=== PATIENT | male | born 1935 | race Caucasian/White ===

== ENCOUNTER → 2018-09-02 | Outpatient (CLI) | payer OTHER ==
[~2018-09-02] MED LIST: AMLODIPINE BESY10 MG; AVAPRO 150 MG150 MG PO; CLEOCIN HCL150 MG PO; NORVASC10 MG PO; PANTOPRAZOLE SO40 M1 PO; VYTORIN 10-201 EACH PO
--- NOTE | ~2018-09-02 | 2DMMODE ---
[facility] [address] [place] [address] 2 D/M-MODE ECHOCARDIOGRAM Name: MICHELLE WAY [facility] Room #: REG [facility]#: [id number] Admission: 09/02/18 Attend Phys: Josesito Jenkins Discharge: Date of : 35 Date of Service: 09/02/18 1408 Report #: [id number] THIS REPORT FOR: //name// APPROVED REPORT Study performed: 09/02/2018 13:07:34 EXAM: Comprehensive 2D, Doppler, and color-flow Echocardiogram Patient Location: Out-Patient Room #: Echo lab 2 Status: routine BSA: 2.22 HR: 64 bpm BP: 144/86 mmHg Rhythm: Pacemaker Other Information Study Quality: Adequate Indications Pacemaker Hypertension/HDD 2D Dimensions RVDd: 41.07 mm IVSd: 11.06 (7-11mm) LVOT Diam: 22.32 (18-24mm) LVDd: 51.63 mm PWd: 10.62 (7-11mm) Ascending Ao: 36.80 (22-36mm) LVDs: 34.96 (25-40mm) Aortic Root: 32.49 mm IVC: 24.00 mm Volumes Left Atrial Volume (Systole) Single Plane 4CH: 75.56 mL Single Plane 2CH: 59.84 mL LA ESV Index: 32.00 mL/m2 Aortic Valve AoV Peak Herber.: 1.88 m/s AO Peak Gr.: 14.20 mmHg LVOT Max P.25 mmHg LVOT Max V: 1.03 m/s ANA Vmax: 2.14 cm2 Mitral Valve E/A Ratio: 0.6 MV Decel. Time: 376.90 ms [facility] [address] [place] [address] 2 D/M-MODE ECHOCARDIOGRAM Name: MICHELLE WAY [facility] Room #: [facility]#: [id number] Admission: 09/02/18 Attend Phys: Josesito Jenkins Discharge: Date of : 35 Date of Service: 09/02/18 1408 Report #: [id number] E Max Herber.: 0.56 m/s MV A Herber.: 0.99 m/s MV PHT: 109.30 ms IVRT: 184.54 ms Pulmonary Valve PV Peak Herber.: 1.23 m/s PV Peak Gr.: 6.05 mmHg Pulmonary Vein P Vein S: 0.56 m/s P Vein A: 0.30 m/s P Vein D: 0.36 m/s P Vein A Dur.: 138.4 msec P Vein S/D Ratio: 1.56 Tricuspid Valve TR Peak Herber.: 2.65 m/s TR Peak Gr.: 28.18 mmHg PA Pressure: 38.00 mmHg Left Ventricle The left ventricle is normal size. There is normal left ventricular wall thickness. The left ventricular systolic function is normal. The left ventricular ejection fraction is within the normal range. LVEF is 50-55%. Grade I - abnormal relaxation pattern. Right Ventricle The right ventricle is normal size. The right ventricular systolic function is normal. Pacemaker lead is present in the right ventricle. Atria Left atrium is at the upper limits of normal. Right atrium is mildly dilated. Pacemaker lead is present in the right atrium. Aortic Valve The aortic valve is normal in structure. Aortic valve is calcified. Mild aortic regurgitation. There is no aortic valvular stenosis. Mitral Valve The mitral valve is normal in structure. Trace mitral regurgitation. No evidence of mitral valve stenosis. Tricuspid Valve The tricuspid valve is normal in structure. There is trace tricuspid regurgitation. Estimated PAP 38 mmHg. There is mild pulmonary hypertension. [facility] [address] [place] [address] 2 D/M-MODE ECHOCARDIOGRAM Name: MICHELLE WAY Room #: REG CL Jovanna#: [id number] Admission: 09/02/18 Attend Phys: Josesito Bowerschonninga Discharge: Date of : 35 Date of Service: 09/02/18 1408 Report #: [id number] Pulmonic Valve The pulmonary valve is normal in structure. Trace pulmonic regurgitation. Great Vessels The aortic root is normal in size. IVC is dilated and collapses >50% with inspiration. Pericardium There is no pericardial effusion. <Conclusion> The left ventricle is normal size. There is normal left ventricular wall thickness. The left ventricular systolic function is normal. Grade I - abnormal relaxation pattern. The right ventricle is normal size. Pacemaker lead is present in the right ventricle. Left atrium is at the upper limits of normal. Right atrium is mildly dilated. Pacemaker lead is present in the right atrium. Mild aortic regurgitation. Trace mitral regurgitation. There is trace tricuspid regurgitation. Estimated PAP 38 mmHg. <ELECTRONICALLY SIGNED> By: Say Braga MD 09/02/18 1408 140 Say Braga MD /INF
== END ==
LOC: CV 08:47
DX: I35.1 Nonrheumatic aortic (valve) insufficiency (principal); I35.8 Other nonrheumatic aortic valve disorders; I10 Essential (primary) hypertension; I48.0 Paroxysmal atrial fibrillation; I27.20 Pulmonary hypertension, unspecified; Z95.0 Presence of cardiac pacemaker

== ENCOUNTER → 2018-12-23 | Outpatient (CLI) | payer OTHER | LOC: NUC 08:25 | DX: R06.00 Dyspnea, unspecified (principal); R20.0 Anesthesia of skin; Z87.891 Personal history of nicotine dependence ==

== ENCOUNTER 2019-01-04 07:50 | Inpatient (IN) | payer OTHER ==
[2019-01-04] VITALS (10 sets, daily range): BP systolic 95–134; BP diastolic 52–75
[~2019-01-04] VITALS: Ht 188 cm; Wt 97.7 kg
[2019-01-04] MEDS ORDERED: PRADAXA150 MG PO (08:21)
[2019-01-04 08:23] LABS: HEMATOCRIT 43.8 % (42.0-52.0); MCH 29.5 pg (26.0-34.0); MCHC 34.2 g/dL (28.0-37.0); MCV 86.3 fL (80.0-100.0); RBC 5.08 mil/uL (4.50-6.00); RDW 13.5 % (10.5-14.5); WBC 6.2 thou/uL (4.0-11.0)
[2019-01-04 08:39] LABS: CALCIUM 10.2 mg/dL (8.5-10.1); CREATININE 1.5 mg/dL (0.7-1.3); POTASSIUM 3.7 mmol/L (3.5-5.1)
--- NOTE | 2019-01-04 09:11 | EKG ---
[address] [address] ELECTROCARDIOGRAM REPORT Name: MICHELLE WAY [facility] [id number] ������������������ Admission: 01/04/19 ������������������ Attend Phys: Say Braga MD Discharge: ������������������ Date of : 35 Report #: [id number] ����������������������������������������������������������������� [id number] THIS REPORT FOR: //name// [facility] Test Date: 2019-01-04 Test Time: 08:29:20 Pat Name: MICHELLE WAY Department: Room: Gender: Speaker Mounter: Graciela BUTLER : 1935 Requested By: Say Braga Order Number: [id number] MD: Josesito Jenkins Measurements Intervals [place] Rate: 60 P: 13 OR: 196 QRS: -85 QRSD: 192 T: 88 QT: 489 QTc: 489 Interpretive Statements Atrial-ventricular dual-paced rhythm No further analysis attempted due to paced rhythm Compared to ECG 04/20/2016 07:29:06 No significant changes Electronically Signed On 01-04-2019 9:10:54 CDT by Josesito Jenkins [email or web address] ��������������������������������������������� <ELECTRONICALLY SIGNED> ���������������������������������������� By: Josesito Jenkins MD ��������������������������������������������� [id number] [phone] Josesito Jenkins MD /GABBY
--- NOTE | 2019-01-04 10:52 | CATHLAB ---
[facility] [place] [address] INVASIVE PROCEDURE REPORT Name: MICHELLE WAY [facility] Room #: REG HoJaspreet#: [id number] ������������� Admission: 01/04/19 ������������� Attend Phys: Say Braga MD Discharge: ��� ������������� ��� Date of : 35 Date of Service: 01/04/19 1052 �� Report #: [id number] �������� ��������������������������������������������[id number] THIS REPORT FOR: //name// APPROVED REPORT Study performed: 01/04/2019 09:24:04 Patient Details Patient Status: Out-Patient Room #: The patient is a 83 year-old male Event Personnel Say Braga Hearing Dog Trainer, Silvia Sin RTR, CERTIFIED COURT/MEDICAL INTERPRETER Monitor, Lorin Gee RN, Holly Flores Kline, Tiffany RN slinger sequins Performed Art Access - R femoral artery* Coronary Angiography Only [id number] CORANG 59873 Initial Mod Sed Same Phys/QHP Gr5y 703189 92650 Mod Sed Same Phys/QHP Ea 206603 Hemostasis with Manual pressure Indication Dyspnea, Atypical chest pain , Positive stress test Risk Factors Hypercholesterolemia, Hypertension Procedure Narrative The Right Groin^ was infiltrated with 1% Lidocaine subcutaneous anesthesia. A PINNACLE 5FR Sheath #[id number] sheath was inserted into the RFA^. Coronary angiography was performed using coronary diagnostic catheters. The right coronary system was accessed and visualized with a JR4 catheter. The left coronary system was accessed and visualized with a JL5 catheter. Hemostasis was obtained with manual pressure following sheath removal without any complications. The patient tolerated the procedure well and there were no complications associated with the procedure. There was no hematoma. Intraoperative Conscious Sedation Sedation start time: 09:37 Case end Time: 10:19 Fentanyl 25 mcg Versed 0.[address] [address] INVASIVE PROCEDURE REPORT Name: MICHELLE WAY Room #: REG [facility]#: [id number] ������������� Admission: 01/04/19 ������������� Attend Phys: Say Braga MD Discharge: ��� ������������� ��� Date of : 35 Date of Service: 01/04/19 1052 �� Report #: [id number] �������� ��������������������������������������������[id number] Fluoro Time: 4.57 minutes Dose: DAP 5140.70 cGycm2 563 mGy Contrast Type and Amount: Visipaque 65 ml Coronary Angiography The patient's coronary anatomy is right dominant. Diagnostic Cath Left Main This is a short segment, with no flow-limiting lesions. LAD Just after giving off the first diagonal artery and first septal honest john rocket crew member, there is a severe occlusion, 95% in the mid segment. After the stenosis, the remaining segment of the LAD is free of any significant obstruction. Diagonal 1 There is a severe proximal occlusion. It divides into 2 branches, the inferior branch has a severe proximal stenosis. Circumflex This is a moderate size caliber vessel, has mild disease in the proximal segment. After giving off the first OM, there is a severe occlusion in the mid segment. The distal OM marginal is a small caliber vessel. OM1 This is a moderate size caliber vessel, patent with no flow-limiting lesions. OM2 This is a small-caliber vessel. Right Coronary There is a severe occlusion in the proximal segment, 70%. R PDA This has an early takeoff from the mid RCA segment. RPLV There is a severe occlusion in the proximal segment, 70%. Left Ventriculography Left Ventriculography was not performed. Ejection Fraction was >55% based off patient's Nuclear Cardiac Stress Test. Hemodynamics The aortic pressure is 101/59 mmHg with a mean of 76 mmHg. Conclusion 1. Severe multivessel coronary artery disease. 2. Recommend CV surgical consultation. 3. Aggressive risk factor management. ��������������������������������������������� <ELECTRONICALLY SIGNED> ���������������������������������������� By: Say Braga MD ��������������������������������������������� 01/04/19 1052 105 105 Say Braga MD /INF
[2019-01-04 11:00] LABS: HEMATOCRIT 41.5 % (42.0-52.0); PLATELET COUNT 201 thou/uL (150-400)
[2019-01-04 11:02] LABS: ABSOLUTE NEUTROPHILS 4.5 thou/uL (1.4-8.2); BASOPHILS 0.4 % (0.0-2.0); EOSINOPHILS 1.2 % (0.0-3.0); HEMOGLOBIN 14.2 gm/dL (14.0-18.0); LYMPHOCYTES 15.8 % (24.0-44.0); MCH 29.7 pg (26.0-34.0); MCHC 34.2 g/dL (28.0-37.0); POLYS 72.6 % (36.0-66.0); RBC 4.77 mil/uL (4.50-6.00); RDW 13.5 % (10.5-14.5); WBC 6.1 thou/uL (4.0-11.0)
[2019-01-04 11:10] LABS: APTT 27.3 Seconds (24.5-32.8); INR 1.1; PROTIME 11.2 Seconds (9.3-11.4)
[2019-01-04 11:16] LABS: CALCIUM 9.4 mg/dL (8.5-10.1); CREATININE 1.4 mg/dL (0.7-1.3); POTASSIUM 3.7 mmol/L (3.5-5.1)
[2019-01-04 11:22] LABS: ALBUMIN 3.9 g/dL (3.4-5.0); TOTAL BILIRUBIN 0.9 mg/dL (<0.1-1.0); TOTAL PROTEIN 6.7 g/dL (6.4-8.2)
--- NOTE | 2019-01-04 19:47 | NUR ---
ASSJESSNH CARE AT 1430, SHIFT ASSESSMENT AND ADMISSION DONE, VSS. POST CARDIAC CATH, RIGHT GROIN SITE, HEMOSTASIS WAS OBTAINED AT 1020, CAME TO THE FLOOR AFTER COMPLETING BED REST. SITE LOOKS C/D/I, SOFT TO TOUCH, NO BRUIT, NO REDNESS OR HEMATOMA NOTED, SEE INTERVETION FOR VS AND DOCUMENTATION. VS PERFORMED Q1*5 HOURS, VSS. ON HEART HEALTHY DIET. SCHEDULED FOR CABG TOMORROW. CONSENT SIGNED. RESTING IN BED THIS PM. WILL CONTINUE TO ASSESS AND ASSIST WITH ADLs NEEDED.
[2019-01-04 22:10] LABS: GLYCOHEMOGLOBIN (HGB A1C) 5.9 % (4.8-5.6)
[2019-01-04 22:50] LABS: URINE BILIRUBIN NEGATIVE (Negative); URINE BLOOD NEGATIVE (Negative); URINE CLARITY CLEAR; URINE COLOR YELLOW; URINE GLUCOSE-RANDOM* NEGATIVE (Negative); URINE KETONES TRACE (Negative); URINE LEUKOCYTES-REFLEX NEGATIVE (Negative); URINE NITRITE-REFLEX NEGATIVE (Negative); URINE PROTEIN (DIPSTICK) NEGATIVE (Negative); URINE SPECIFIC GRAVITY 1.015 (1.005-1.035)
[2019-01-05 01:19] VITALS: BP 154/68
[2019-01-05 05:52] VITALS: BP 112/55; BP 122/69
--- NOTE | 2019-01-05 06:54 | NUR ---
ASSUME CARE 1900. PT/VITALS STABLE. PT ANXIOUS ABOUT PROCEDURE TODAY. BENEDRYL FOR REST/SLEEP. HIBICLENS BATH GIVEN. VOIDS ADEQUATELY. ASSESSMENT CHARTED. PLAN IS FOR PT TO STAY NPO AFTER MIDNIGHT FOR CABG THIS AM. CONSENTS SIGNED. BLOOD PRODUCTS READY. WILL CONTINUE TO MONITOR AND FOLLOW WITH POC
[2019-01-05 07:47] VITALS: BP 148/78; BP 162/66
--- NOTE | 2019-01-05 10:22 | NUR ---
Pt admitted with severe 3-vessel CAD. CABG this morning. Will be transferred to ICU this afternoon. Will assess tomorrow.
[2019-01-05 13:35] LABS: MCHC 34.5 g/dL (28.0-37.0); MCV 86.8 fL (80.0-100.0); RBC 3.16 mil/uL (4.50-6.00); RDW 13.5 % (10.5-14.5); WBC 14.2 thou/uL (4.0-11.0)
[2019-01-05 13:38] LABS: HEMATOCRIT 27.5 % (42.0-52.0); HEMOGLOBIN 9.5 gm/dL (14.0-18.0)
[2019-01-05 13:50] LABS: APTT 28.7 Seconds (24.5-32.8); FIBRINOGEN 178.8 mg/dL (210-360); INR 1.4
[2019-01-05 14:29] LABS: POC BE 1 mmol/L (-2.0 to +3.0); POC GLUCOSE 123 mg/dL (70-99); POC HCO3 27.1 mmol/L (22.0-26.0); POC HEMOGLOBIN 11.9 g/dL (14.0-18.0); POC POTASSIUM 3.7 mmol/L (3.5-5.1); POC SODIUM 140 mmol/L (136-145); POC pCO2 52.1 mmHg (35.0-45.0); POC pH 7.323 (7.360-7.450)
[2019-01-05 14:29] LABS: POC BE 0 mmol/L (-2.0 to +3.0); POC CA IONIZED 5.1 mg/dL (4.5-5.3); POC GLUCOSE 110 mg/dL (70-99); POC HCO3 24.6 mmol/L (22.0-26.0); POC HEMOGLOBIN 12.9 g/dL (14.0-18.0); POC POTASSIUM 3.7 mmol/L (3.5-5.1); POC SODIUM 139 mmol/L (136-145); POC pCO2 36.3 mmHg (35.0-45.0); POC pH 7.438 (7.360-7.450)
[2019-01-05 14:30] LABS: POC BE 1 mmol/L (-2.0 to +3.0); POC CA IONIZED 4.7 mg/dL (4.5-5.3); POC GLUCOSE 147 mg/dL (70-99); POC HCO3 24.9 mmol/L (22.0-26.0); POC HEMOGLOBIN 10.2 g/dL (14.0-18.0); POC POTASSIUM 3.7 mmol/L (3.5-5.1); POC SODIUM 139 mmol/L (136-145); POC pCO2 36.2 mmHg (35.0-45.0); POC pH 7.445 (7.360-7.450)
[2019-01-05 14:30] LABS: POC BE -2 mmol/L (-2.0 to +3.0); POC CA IONIZED 5.2 mg/dL (4.5-5.3); POC GLUCOSE 131 mg/dL (70-99); POC HCO3 22.9 mmol/L (22.0-26.0); POC HEMOGLOBIN 9.9 g/dL (14.0-18.0); POC POTASSIUM 3.5 mmol/L (3.5-5.1); POC SODIUM 139 mmol/L (136-145); POC pH 7.399 (7.360-7.450)
[2019-01-05 14:30] LABS: POC BE 0 mmol/L (-2.0 to +3.0); POC CA IONIZED 5.6 mg/dL (4.5-5.3); POC GLUCOSE 149 mg/dL (70-99); POC HCO3 24.5 mmol/L (22.0-26.0); POC HEMOGLOBIN 8.8 g/dL (14.0-18.0); POC POTASSIUM 3.4 mmol/L (3.5-5.1); POC SODIUM 137 mmol/L (136-145); POC pCO2 40.1 mmHg (35.0-45.0); POC pH 7.393 (7.360-7.450)
[2019-01-05 14:30] LABS: POC BE 1 mmol/L (-2.0 to +3.0); POC CA IONIZED 4.6 mg/dL (4.5-5.3); POC GLUCOSE 159 mg/dL (70-99); POC HCO3 25.1 mmol/L (22.0-26.0); POC HEMOGLOBIN 10.2 g/dL (14.0-18.0); POC POTASSIUM 3.9 mmol/L (3.5-5.1); POC SODIUM 140 mmol/L (136-145); POC pCO2 35.7 mmHg (35.0-45.0); POC pH 7.455 (7.360-7.450)
[2019-01-05 14:30] LABS: POC BE 0 mmol/L (-2.0 to +3.0); POC CA IONIZED 4.8 mg/dL (4.5-5.3); POC GLUCOSE 130 mg/dL (70-99); POC HCO3 25.4 mmol/L (22.0-26.0); POC HEMOGLOBIN 10.5 g/dL (14.0-18.0); POC POTASSIUM 4.3 mmol/L (3.5-5.1); POC SODIUM 139 mmol/L (136-145); POC pH 7.359 (7.360-7.450)
[2019-01-05 14:30] LABS: POC BE 1 mmol/L (-2.0 to +3.0); POC CA IONIZED 4.6 mg/dL (4.5-5.3); POC GLUCOSE 149 mg/dL (70-99); POC HCO3 25.7 mmol/L (22.0-26.0); POC HEMOGLOBIN 10.5 g/dL (14.0-18.0); POC POTASSIUM 3.9 mmol/L (3.5-5.1); POC SODIUM 139 mmol/L (136-145); POC pCO2 38.4 mmHg (35.0-45.0); POC pH 7.434 (7.360-7.450)
[2019-01-05 15:00] VITALS: BP 95/48
[2019-01-05 15:31] LABS: BE(vivo) -6.1 mmol/L (-2 to +3); HCO3 19.2 mmol/L (22.0-26.0); PCO2 37.1 mmHg (35.0-45.0); pH 7.331 (7.360-7.450); sO2 99.1 % (92.0-98.0)
[2019-01-05 16:15] LABS: HEMOGLOBIN 10.2 gm/dL (14.0-18.0); MCH 29.5 pg (26.0-34.0); MCV 86.8 fL (80.0-100.0); RBC 3.45 mil/uL (4.50-6.00); RDW 13.7 % (10.5-14.5); WBC 17.8 thou/uL (4.0-11.0)
[2019-01-05 16:23] LABS: CALCIUM 9.2 mg/dL (8.5-10.1); CREATININE 1.2 mg/dL (0.7-1.3); MAGNESIUM 2.2 mg/dL (1.8-2.4); POTASSIUM 3.7 mmol/L (3.5-5.1)
[2019-01-05 16:29] LABS: APTT 30.3 Seconds (24.5-32.8); INR 1.2; PROTIME 12.2 Seconds (9.3-11.4)
[2019-01-05 17:36] LABS: BE(vivo) -4.2 mmol/L (-2 to +3); HCO3 20.7 mmol/L (22.0-26.0); PCO2 37.2 mmHg (35.0-45.0); PO2 114.2 mmHg (80.0-100.0); pH 7.363 (7.360-7.450); sO2 98.1 % (92.0-98.0)
--- NOTE | 2019-01-05 18:23 | NUR ---
1500-received pt from o.r. s/p cabg. see ccfs for vs,sig events,hrly outputs,gtt titration.--vw 182-pt has done great. extubated w/o diff,c/o abd hurting.denies sternal pain. reinforced need for good,slow deep breaths.instructed to use heart pillow to splint.drifts into sleep once left alone.hemodynamics stable..-vw
[2019-01-05 18:35] LABS: BE(vivo) -3.1 mmol/L (-2 to +3); HCO3 22.4 mmol/L (22.0-26.0); PCO2 41.7 mmHg (35.0-45.0); PO2 109.4 mmHg (80.0-100.0); pH 7.348 (7.360-7.450); sO2 97.8 % (92.0-98.0)
--- NOTE | 2019-01-05 19:24 | NUR ---
ISHAN RODNEY INFORMED OF CONSULT. MESSAGE LEFT W DAVE HOWELL RE:SAME.--VW
[2019-01-06] VITALS (11 sets, daily range): BP systolic 84–138; BP diastolic 45–73
[2019-01-06 06:05] LABS: HEMATOCRIT 26.8 % (42.0-52.0); HEMOGLOBIN 9.2 gm/dL (14.0-18.0); MCH 29.8 pg (26.0-34.0); MCHC 34.2 g/dL (28.0-37.0); MCV 87.3 fL (80.0-100.0); RBC 3.07 mil/uL (4.50-6.00); RDW 13.9 % (10.5-14.5); WBC 10.5 thou/uL (4.0-11.0)
[2019-01-06 06:18] LABS: CALCIUM 8.8 mg/dL (8.5-10.1); CREATININE 1.3 mg/dL (0.7-1.3); MAGNESIUM 2.3 mg/dL (1.8-2.4); POTASSIUM 3.8 mmol/L (3.5-5.1)
--- NOTE | 2019-01-06 07:51 | NUR ---
PT UP IN CHAIR THIS AM. FENTANYL 25 MCG GIVEN FOR PAIN NEEDED. HEMODYNAMICS WNL. ALBUMIN GIVEN DURING NIGHT FOR LOW FILLING PRESSURE. MODERATE AMT OF SERO-SANQ CT DRAINAGE. UO -REMAINS HEMATURIC DURING NIGHT-NO CLOTS NOTED. MONITOR SHOWED PACED RHYTHM. TEMP PACE ATTACHED BUT OFF. SEE CC FLOWSHEET FOR VITALS AND EVENTS. CONT PLAN OF CARE
--- NOTE | 2019-01-06 08:02 | EKG ---
[address] [address] ELECTROCARDIOGRAM REPORT Name: MICHELLE WAY [facility] Room #: 248-P ADM IN M.R.#: [id number] ������������������ Admission: 01/04/19 ������������������ Attend Phys: Say Braga MD Discharge: ������������������ Date of : 35 Report #: [id number] ����������������������������������������������������������������� [id number] THIS REPORT FOR: //name// [facility] Test Date: 2019-01-06 Test Time: 07:25:23 Pat Name: MICHELLE WAY Department: Room: 248 P Gender: M Vice President And Portfolio Manager: DIGNA : 1935 Requested By: Michel Kaur Order Number: [id number] MD: Josesito Jenkins Measurements Intervals [place] Rate: 120 P: AK: 51 QRS: 267 QRSD: 192 T: 109 QT: 465 QTc: 658 Interpretive Statements Atrial-paced complexes Multiform ventricular premature complexes Nonspecific IVCD with LAD Compared to ECG 01/04/2019 08:29:20 Electronically Signed On 01-06-2019 8:01:58 CDT by Josesito Jenkins [email or web address] ��������������������������������������������� <ELECTRONICALLY SIGNED> ���������������������������������������� By: Josesito Jenkins MD ��������������������������������������������� 01/06/19 0801 4 4 Josesito Jenkins MD /GABBY
--- NOTE | 2019-01-06 10:53 | NUR ---
Case opened to follow for dc planning. Pt is currently in the ICU s/p CABGx6. He just worked with therapy and is now sleeping. Ostomy Care Nurse visited with his Melinda and his sister in the waiting room. Pt's reports that he was independent, driving and active prior to admission. She does not drive and is interested in HH for him vs directly going to outpt cardiac rehab at or. He does not use an assistive device. They have 2 steps to enter their duples and everything is on the main level. Pt's just lost her brother in [place] and is very emotional. Support provided.
--- NOTE | 2019-01-06 13:34 | NUR ---
ALERT AND ORIENTED, HAS BEEN MEDICATED FOR PAIN WITH PRN MEDS. VITALS STABLE. UP TO THE CHAIR WITH ASSIST AND TOLERATED WELL. SWAN ORI AND CARLISLE DC'D THIS MORNING, HEMATURIA NOTED. PATIENT ABLE TO VOID THIS AFTERNOON AND HEMATURIA IS NOTED. PACER WIRES CAPPED. OMAR WRAP REMOVED FROM LLE. A-LINE ON RT RADIAL AND WILL DC THIS AFTERNOON PER ORDER. CHEST TUBES IN PLACE-AIR LEAK NOTED. PICCO DRESSING ON STERNAL INCISION INTACT. LEAKING AROUND MS CHEST TUBE-GAUZE APPLIED. WILL CONTINUE TO MONITOR CLOSELY.
[2019-01-07] VITALS (15 sets, daily range): BP systolic 104–147; BP diastolic 48–93
[2019-01-07 05:34] LABS: HEMATOCRIT 25.8 % (42.0-52.0); HEMOGLOBIN 8.8 gm/dL (14.0-18.0); MCH 29.7 pg (26.0-34.0); MCV 87.4 fL (80.0-100.0); RBC 2.95 mil/uL (4.50-6.00); RDW 13.8 % (10.5-14.5); WBC 11.4 thou/uL (4.0-11.0)
[2019-01-07 05:50] LABS: CALCIUM 8.8 mg/dL (8.5-10.1); CREATININE 1.2 mg/dL (0.7-1.3); POTASSIUM 3.8 mmol/L (3.5-5.1)
--- NOTE | 2019-01-07 06:22 | NUR ---
ASSUMED CARE @ 1900 01/06/19, ASSESSMENTS AND VS COMPLETE PER ICU PROTOCOL. PT ALERT AND ORIENTED X 4, PT ABLE TO FOLLOW COMMANDS, PT DENIES PAIN THROUGH OUT THE SHIFT. PT A-V, V PACED DURING THE SHIFT, NO EDEMA NOTED, CHEST TUBES X [address], SEE PROCESS INTERVENTION FOR SPECIFICS. PT ON 2L WHILE SLEEPING ON RA WHILE AWAKE. AT APPROX 0000, PT COMPLAINS OF HIS URGE TO CONSTANTLY URINATE BUT FRUSTRATED ON NOT BEING ABLE TO, BLADDER SCAN WAS DONE, 302 ML NOTED IN THE BLADDER, LYDNA ACOSTA CALLED, THREE WAY CARLISLE PUT IN DUE TO HX OF HEMATURIA AND POTENTIAL NEED TO FLUSH IF ITS NEEDED. PT ON REGULAR LOW FAT DIET. PLAN OF CARE- CONT TO MONITOR.
--- NOTE | 2019-01-07 11:23 | NUR ---
MEDIASTINAL CHEST TUBES PULLED. AND INTRADUCER OUT NOW. MINIMAL BLEEDING NOTED. PT COMFORTABLE RESTING. BATH DONE AND CHANGED GOWN PT LYING FLAT. RESTING. MINIMAL PAIN NOTED. ONGOING MONITORING AND NURSING CARE AT THIS TIME. FAMILY PRESENT FOR SUPPORT. ORDERD OBTAINED AND CARRIED OUT PER Kalli HERMAN RN.
[2019-01-08 00:23] VITALS: BP 116/58
[2019-01-08 04:00] VITALS: BP 155/76
--- NOTE | 2019-01-08 06:02 | NUR ---
ASSUMED PT CARE AT 1900 WITH NO SIGN OF DISTRESS NOTED, PT IS A TRANSFER FROM ICU. CHEST TUBE IS IN PLACE AND CONNECTED TO SUCTION. PT IS ALERT BUT CONFUSED. PT IS ANXIOUS THROUGHOUT THE NIGHT AND DID NOT SLEEP. ASSESSMENT DONE AND DOCUMENTED. SCHEDULED MEDS ADMINISTERED TO PT. NO SIGN OF DISTRESS, PT IS STILL CONSIPATED. DENIES ANY FURTHER NEEDS AT THIS TIME.
[2019-01-08 08:30] VITALS: BP 121/69
--- NOTE | 2019-01-08 10:06 | NUR ---
Followup: s/p CABG. Reports appetite usually good but has been poor since surgery. No wt loss indicated from usual. Willing to trial Ensure until eating better. Otherwise low nutrition risk
--- NOTE | 2019-01-08 12:14 | NUR ---
ASSESSMENT CHARTED, PATIENT ORIENTED TO SELF, CONFUSED, KEEPS ASKING WHEN FAMILY WILL BE HERE. PATIENT AMBULATED WITH CARDIAC REHAB. GIVEN MIRALAX WITH PRUNE JUICE.
[2019-01-08 12:21] VITALS: BP 137/55
[2019-01-08 16:00] VITALS: BP 105/61
--- NOTE | 2019-01-08 16:06 | NUR ---
[place] visited with pt, his and son and dtr in law over the phone and at bedside this afternoon regarding dc planning needs. They are working on buying a lift chair. They are concerned that the pt may need SNF vs HH at dc. [facility] SNF list for [facility] provided along with a HH listing. Choice letter signed by and charted. They will try to tour 2 SNFs over the weekend, [facility], [facility]or [facility]. The pt and his live at [address] and his does not drive. They are concerned about f/u care due to this. The pt has been a little confused today. Working with therapy. Chest tube in place. Will reasses Friday for dc recommendations and f/u with the pt/spouse.
--- NOTE | 2019-01-08 17:12 | NUR ---
PATIENT MOVED TO ROOM 217, CONTINUES TO BE CONFUSED AND FORGETFUL, VSS. CHEST TUBE REMOVED BY PA, VSS, NO COMPLAINTS OF PAIN, WILL CONTINUE TO MONITOR
[2019-01-08 19:09] VITALS: BP 108/53
--- NOTE | 2019-01-09 03:14 | NUR ---
ASSUMED PT CARE AT 1900. PT A/O TO SELF, PLACE, SITUATION. OCCASIONALL CONFUSED AND FORGETFUL. VITAL SIGNS STABLE, ASSESSMET CHARTED. MIDSTERNAL DRESSING INTACT. PT CLOSE TO NURSING STATION FOR CLOSE MONITORING. FALL PRECAUTIONS IN PLACE. PT WALKED IN [address], TOLERATED ACTIVITY WELL. RESTED WELL THROUGH THE NIGHT. PROGRESSING TOWARD PLAN OF CARE. WILL CONTINUE TO MONITOR.
[2019-01-09 03:52] VITALS: BP 121/62
[2019-01-09 05:42] LABS: HEMATOCRIT 25.4 % (42.0-52.0); HEMOGLOBIN 8.8 gm/dL (14.0-18.0); MCHC 34.5 g/dL (28.0-37.0); MCV 86.9 fL (80.0-100.0); RBC 2.92 mil/uL (4.50-6.00); RDW 13.6 % (10.5-14.5); WBC 9.6 thou/uL (4.0-11.0)
[2019-01-09 05:55] LABS: CALCIUM 9.1 mg/dL (8.5-10.1); CREATININE 1.1 mg/dL (0.7-1.3); POTASSIUM 3.5 mmol/L (3.5-5.1)
[2019-01-09 07:41] VITALS: BP 123/63
[2019-01-09] MEDS ORDERED: FERREX 150 PLU1 EAC1 PO (08:32)
[2019-01-09] MEDS ORDERED: HYDROCODON-ACE1 EAC7 PO (08:33)
[2019-01-09] MEDS ORDERED: MIRALAX17 GM PO (08:33)
[2019-01-09] MEDS ORDERED: ADULT LOW DOSE81 MG PO (08:33)
--- NOTE | 2019-01-09 08:45 | EKG ---
[address] [address] ELECTROCARDIOGRAM REPORT Name: MICHELLE WAY Room #: 217-P ADM IN M.R.#: [id number] ������������������ Admission: 01/04/19 ������������������ Attend Phys: Say Braga MD Discharge: ������������������ Date of : 35 Report #: [id number] ����������������������������������������������������������������� [id number] THIS REPORT FOR: //name// [facility] Test Date: 2019-01-09 Test Time: 07:11:51 Pat Name: MICHELLE WAY Department: Room: 217 P Gender: M Final Inspector Paper: ECTOR : 1935 Requested By: Michel Kaur Order Number: [id number] MD: Josesito Jenkins Measurements Intervals [place] Rate: 87 P: 42 CO: 228 QRS: -77 QRSD: 182 T: 85 QT: 412 QTc: 496 Interpretive Statements Atrial-sensed ventricular-paced rhythm No further analysis attempted due to paced rhythm Compared to ECG 01/06/2019 07:25:23 Atrial-paced complex(es) or rhythm no longer present Ventricular premature complex(es) no longer present Intraventricular conduction delay no longer present Electronically Signed On 01-09-2019 8:45:38 CDT by Josesito Jenkins [email or web address] ��������������������������������������������� <ELECTRONICALLY SIGNED> ���������������������������������������� By: Josesito Jenkins MD ��������������������������������������������� 01/09/1945 0 0 Josesito Jenkins MD /EPI
[2019-01-09 11:24] VITALS: BP 100/66
[2019-01-09 16:21] VITALS: BP 126/69
--- NOTE | 2019-01-09 16:33 | NUR ---
AAOX2 NAME AND PLACE - REORIENTS EASILY. PLESANTLY CONFUSED. UP WITH PHYSICAL THERAPY WITH SLOW STEADY GAIT. UP TO SHOWER AND MIDLINE CHEST DRESSING CHANGED. DENIES PAIN. FAIR APPETITE. MIDLINE STENAL INCISION CLEAN AND DRY WITH NO DRAINAGE. CARLISLE REMOVED AND VOIDED 150ML DARK YELLOW URINE. RESP EVEN AND UNLABORED.
[2019-01-09 19:49] VITALS: BP 108/50
[2019-01-10 02:57] VITALS: BP 109/64
[2019-01-10 07:42] VITALS: BP 125/55
[2019-01-10 11:59] VITALS: BP 93/57
--- NOTE | 2019-01-10 12:06 | O ---
[facility] [place] [address] OPERATIVE REPORT Name: MICHLELE WAY [facility] Room #: 217-P [facility] IN M.R.#: [id number] Admission: 01/04/19 ������������������ Attend Phys: Say Braga MD Discharge: ������������������ Date of : 35 Report #: [id number] THIS REPORT FOR: //name// CC: Ranjith Chau DATE OF SERVICE: 01/05/2019 PREOPERATIVE DIAGNOSIS: Coronary artery disease. POSTOPERATIVE DIAGNOSIS: Coronary artery disease. OPERATION: Coronary artery bypass x 6 including left internal mammary artery to left anterior descending artery; saphenous vein to diagonal 2, marginal 1, and marginal 2 and saphenous vein to posterior descending and posterolateral branches of the right coronary artery; and endoscopic harvest, left greater saphenous vein. SURGEON: David Chau MD HAND WRAPPER OPERATOR: SHAISTA Alvarez. ANESTHESIA: General. INDICATIONS: The patient is an 83-year-old with coronary artery disease. The patient had a positive stress test. She presents with some atypical angina. Catheterization by Dr. Braga showed severe multivessel occlusive disease, ejection fraction approximately 50% with hypokinesis in the posterolateral territory. FINDINGS AND TECHNIQUE: After general anesthesia was established, saphenous vein was harvested using an endoscopic approach and prepared for use as a conduit. Exposure was obtained through median sternotomy. Left internal mammary artery was harvested. Pericardial well was made. Cannulation sutures were placed. Heparin was given. Aorta was cannulated. Right atrium was cannulated. Cardioplegia needle was positioned in the aortic root. Retrograde cardioplegic catheter was placed in the coronary sinus. Cardiopulmonary bypass was established. The aorta was cross clamped. Antegrade and retrograde cardioplegia were given. Ice was poured into the pericardial well. The heart was stopped. During electromechanical arrest, the distal anastomoses were performed and end-to-side anastomosis was made between vein and the posterolateral branch of [facility] [address] [place] [address] OPERATIVE REPORT Name: MICHELLE WAY [facility] Room #: 217-P [facility] IN [facility].#: [id number] Admission: 01/04/19 ������������������ Attend Phys: Say Braga MD Discharge: ������������������ Date of : 35 Report #: [id number] the right coronary. Cold cardioplegia was given. The same segment of vein was sewn to the posterior descending artery in [id number] fashion. Cold cardioplegia was given. A separate segment of vein was sewn in end-to-side fashion to the distal marginal artery. This was beyond the high-grade circumflex occlusion and quite honestly was seen much better at surgery than on the angiogram. Cold cardioplegia was given. Same segment of vein was sewn in ucvq-[id number]-khae to the large first marginal artery. Cold cardioplegia was given. Same segment of vein was sewn in [id number]-wb-rapd fashion to the large second diagonal. Cold cardioplegia was given. Left internal mammary artery was sewn in end-to-side fashion to left anterior descending artery. This was tested with the temperature technique. Cold cardioplegia was given. Two proximal anastomoses were performed and these were complete, warm retrograde cardioplegia was given, followed by continuous blood to the coronary sinus. When this infusion was complete, the crossclamp was removed, de-airing maneuvers were performed. The anastomoses were inspected and found to be satisfactory. As the patient warmed, nice cardiac activity resumed, chest tubes and pacing wires were placed, a marker was placed around the proximal anastomoses. When the patient was warmed, he was weaned from cardiopulmonary bypass. Venous cannula was removed. Protamine was given, the aortic cannula was removed. Flows were measured in the bypass grafts. When hemostasis was satisfactory, chest was closed in the usual fashion. The patient was taken to the Intensive Care Unit in good condition. All counts were reported as correct. ��������������������������������������������� <ELECTRONICALLY SIGNED> ���������������������������������������� By: David Chau MD ��������������������������������������������� 01/10/19 1206 0734 0939 David Chau MD /nt
--- NOTE | 2019-01-10 12:06 | HC ---
[facility] [place] [address] CONSULTATION Name: MICHELLE WAY [facility] Room #: 217-P [facility] IN M.R.#: [id number] Admission: 01/04/19 ������������������ Attend Phys: Say Braga MD Discharge: ������������������ Date of : 35 Report #: [id number] THIS REPORT FOR: //name// CC: Ranjith Hernandez Elkin DATE OF SERVICE: 01/04/2019 We were asked by Dr. Braga to see the patient. HISTORY OF PRESENT ILLNESS: The patient is an 83-year old with coronary artery disease. The patient has a history of complete heart block and has had a paroxysmal atrial fibrillation and a pacemaker had been placed by Dr. Jenkins. The patient states that he had numbness in the left arm while watching television approximately 1 week ago. With this, there was no associated chest pain. There is a history of shortness of breath with exertion and occasional lightheadedness with exertion. There is no history of orthopnea or postural nocturnal dyspnea. No other known history of heart disease. We note that previous echocardiogram showed an ejection fraction of 50%-55% and a nuclear stress test was done on December 25 that shows LV ejection fraction of 58%. EKG findings were nondiagnostic as were clinical findings. Nuclear findings showed infarct with mild fernando-infarct ischemia with a fixed defect in the inferolateral apical segment. Cardiac catheterization today shows severe 3-vessel coronary artery disease including 90% left anterior descending stenosis, high grade diagonal lesions, 90% mid circumflex lesion and 70% right coronary stenosis with diffuse disease. No LV gram was done. PAST MEDICAL HISTORY: Significant for heart block, complete; hypertension; paroxysmal atrial fibrillation and dual chamber pacer was placed in 2016. MEDICATIONS AT HOME: Includes amlodipine, Vytorin, Avapro, Protonix and Pradaxa. PAST SURGICAL HISTORY: Previous surgery includes cholecystectomy approximately 3 years ago. SOCIAL HISTORY: The patient is . He is a former smoker. Used cigars until 2011. FAMILY HISTORY: Negative for precocious coronary disease. REVIEW OF SYSTEMS: [facility] [address] [place] [address] CONSULTATION Name: MICHELLE WAY [facility] Room #: [address] [place] [address] [place] .R.#: [id number] Admission: 01/04/19 ������������������ Attend Phys: Say Braga MD Discharge: ������������������ Date of : 35 Report #: [id number] GENERAL: No changes in weight. CONSTITUTIONAL: No fever or chills. EYES: No change in vision. HEENT: No sinus or dental problems. No hearing change. PULMONARY: As mentioned shortness of breath with exertion. No cough or sputum. CARDIAC: Denies angina. Denies palpitations. Otherwise, per HPI. GASTROINTESTINAL: No nausea, vomiting, diarrhea or blood. GENITOURINARY: No urgency, frequency or blood. MUSCULOSKELETAL: No bone or joint discomfort. NEUROLOGICAL: As mentioned, transient numbness of the left arm. No other focal weakness, numbness or stroke. HEMATOLOGIC: No anemia. ENDOCRINE: No hot or cold intolerance. No goiter. No tremors. PHYSICAL EXAMINATION: VITAL SIGNS: Heart rate 60, blood pressure 134/74, temperature 98, respiratory rate 15 and O2 sat 97. GENERAL: The patient is an older fellow with a mesomorphic habitus and looks his stated age. HEENT: Normocephalic. Pupils are round and equal. No nasal discharge. NECK: No mass. No bruit. CHEST: Clear to auscultation. HEART: Rhythm regular. No murmurs audible. ABDOMEN: Soft. No mass. EXTREMITIES: No clubbing, cyanosis or edema. VASCULAR: No obvious saphenous vein problems, 2+ dorsalis pedis and posterior tibial pulses. NEUROLOGICAL: No obvious motor or sensory dysfunction. No cranial nerve dysfunction. SKIN: No rash or infection. IMPRESSION AND PLAN: The patient has important 3-vessel coronary artery disease. I have reviewed the risks and details of coronary artery bypass surgery. These risks include but are not limited to bleeding, infection, anesthesia risks, anesthesia risks, heart problems, lung problems, stroke and . Options and alternatives were reviewed. The patient has been relatively asymptomatic and at his state in life, he is not eager to have surgery. I have urged the patient to review the situation with Dr. Braga to see if a lesser option is reasonable but otherwise our recommendation for coronary artery bypass surgery stands based on the anatomy. Thank you for the consult. ��������������������������������������������� <ELECTRONICALLY SIGNED> ���������������������������������������� By: David Chau MD ��������������������������������������������� 01/10/19 1206 1055 0201 David Chau MD /nt
[2019-01-10 15:36] VITALS: BP 87/55
--- NOTE | 2019-01-10 18:12 | NUR ---
ASSUMED CARE AT 0710. COMPLAINING OF NAUSEA, DOES NOT FEEL LIKE HE IS GOING TO THROW UP BUT JUST QUEASY. ZOFRAN GIVEN IV WITH GOOD RESULTS. NO CP OR OTHER ISSUES. UP WITH ASSIST TIMES ONE. STERNAL DRESSING INTACT. INTERMITTENTLY PACED WITH SOME 2:1 FLUTTER. AMBULATED AROUND ZUNIGA X 2 WITH ASSIST. TOLERATED WELL, NO SOB OR DIZZINESS. WILL BE EVALUATED FOR SNIF IN AM BECAUSE HE DOES NOT FEEL LIKE HE IS READY TO GO HOME.
[2019-01-10 19:55] VITALS: BP 90/50
[2019-01-11 04:55] VITALS: BP 107/53
--- NOTE | 2019-01-11 05:39 | NUR ---
ASSUMED PT CARE AT 1900. PT A/OX4, VITAL SIGNS STABLE, ASSESSMENT CHARTED. NO COMPLAINTS OF PAIN. PT CALLS APPROPRIATELY FOR HELP TO THE BATHROOM. TOLERATED WALK TO THE BATHROOM AND BACK TO BED APPROPRIATELY. PT RESTED WELL THOUGH THE NIGHT. DRESSINGS INTACT. PROGRESSING TOWARD PLAN OF CARE. POSSIBLE DISCHARGE TO REHAB IN AM. WILL CONTINUE TO MONITOR.
[2019-01-11 07:53] VITALS: BP 94/54
--- NOTE | 2019-01-11 09:53 | NUR ---
sp with patient and dtr Angelica [phone]. Angelica reports patients is with her and patient gave permission to sp with dtr Angelica who left casemgt a message to call. Patient interested in [facility] for post acute care. Plan to send referral and submit for auth today. Families second choice will be [place]. left message with admissions at [facility].
--- NOTE | 2019-01-11 10:39 | NUR ---
FAXED REFERRAL TO [facility] LEFT MSG WITH CALEB IN ADM THAT REFERRAL HAS BEEN FAXED AND IF SHE CAN ACCEPT TO SUBMIT FOR AUTH. DCP TO FOLLOW.
[2019-01-11 12:18] VITALS: BP 117/56
--- NOTE | 2019-01-11 15:35 | NUR ---
PT. DISCHARGING TODAY TO [facility]. SPOKE WITH YASH IN ADM, THAT DC ORDERS/SUMMARY HAVE BEEN FAXED AND SHE ARRANGED TRANSPORT VIA VAN FOR 1630 TODAY. AT BEDSIDE NOTIFIED BY ALBAN OF DC AND TIME OF TRANSPORT. UNIT NOTIFIED AND CHART COPY PER US RN TO CALL REPORT TO [phone].
--- NOTE | 2019-01-11 15:38 | NUR ---
notified patient and dtr Angelica of dc today and timeframe of van 1430. chart copied. transfer forms faxed and rec. Rn aware of dc.
--- NOTE | 2019-01-11 16:59 | NUR ---
DISCHARGED TO [facility] IN [place], [place]. REPORT CALLED TO [phone]. LW PIV REMOVED AND GAUZE DRESSING APPLIED. WHEELCHAIR TRANSPORT TO FACILITY. DISCHARGED IN STABLE CONDITION.
== END 2019-01-11 16:50 | DRG 233 ==
LOC: CATH 07:50 → 2N 14:31 → ICU 14:31 → TBA 14:31 → ICU 01-05 15:06 → 2N 01-07 13:54
PROVIDERS: Internal Medicine Cardiovascular Disease; Physician Assistant; ADMIT Surgery Vascular Surgery
PROC: B2111ZZ Fluoroscopy of Multiple Coronary Arteries using Low Osmolar Contrast (ICD-10-PCS; principal; 2019-01-04)
PROC: 4A023N7 Measurement of Cardiac Sampling and Pressure, Left Heart, Percutaneous Approach (ICD-10-PCS; principal; 2019-01-04)
PROC: 02100Z9 Bypass Coronary Artery, One Artery from Left Internal Mammary, Open Approach (ICD-10-PCS; 2019-01-05)
PROC: 06BQ4ZZ Excision of Left Saphenous Vein, Percutaneous Endoscopic Approach (ICD-10-PCS; 2019-01-05)
PROC: 4B02XSZ Measurement of Cardiac Pacemaker, External Approach (ICD-10-PCS; 2019-01-05)
PROC: 021309W Bypass Coronary Artery, Four or More Arteries from Aorta with Autologous Venous Tissue, Open Approach (ICD-10-PCS; 2019-01-05)
PROC: 30233K1 Transfusion of Nonautologous Frozen Plasma into Peripheral Vein, Percutaneous Approach (ICD-10-PCS; 2019-01-05)
PROC: 5A1221Z Performance of Cardiac Output, Continuous (ICD-10-PCS; 2019-01-05)
DX: I25.10 Atherosclerotic heart disease of native coronary artery without angina pectoris (principal); N17.0 Acute kidney failure with tubular necrosis; J93.9 Pneumothorax, unspecified; J98.11 Atelectasis; I44.2 Atrioventricular block, complete; I48.0 Paroxysmal atrial fibrillation; I10 Essential (primary) hypertension; E78.5 Hyperlipidemia, unspecified; K59.00 Constipation, unspecified; N40.0 Benign prostatic hyperplasia without lower urinary tract symptoms; K21.9 Gastro-esophageal reflux disease without esophagitis; Z95.0 Presence of cardiac pacemaker; Z90.49 Acquired absence of other specified parts of digestive tract; Z87.891 Personal history of nicotine dependence; Z79.899 Other long term (current) drug therapy; Z80.0 Family history of malignant neoplasm of digestive organs; Z80.42 Family history of malignant neoplasm of prostate; D64.9 Anemia, unspecified
CPT/HCPCS: 10078; 10081; 47000; 47001; 47002; 47297; 48888; 50010; 50249; 50409; 50456; 50498; 50668; 51301; 52131; 52259; 52314; 53327; 53358; 54118; 56524; 56525; 56526; 56527; 56528; 56531; 56668; 56760; 56898; 57093; 57116; 62110; 62950; 65003; 65020; 65047; 65090; 65135

== ENCOUNTER → 2019-04-01 | Outpatient (CLI) | payer OTHER ==
[~2019-04-01] MED LIST changes: +ADULT LOW DOSE81 MG PO; +FERREX 150 PLU1 EAC1 PO; +HYDROCODON-ACE1 EAC7 PO; +MIRALAX17 GM PO; +PRADAXA150 MG PO
--- NOTE | 2019-04-01 10:09 | 2DMMODE ---
[facility] [place] [address] 2 D/M-MODE ECHOCARDIOGRAM Name: MICHELLE WAY [facility] Room #: REG [facility]#: [id number] ������������� Admission: 04/01/19 ������������� Attend Phys: Say Braga MD Discharge: ��� ������������� ��� Date of : 35 Date of Service: 04/01/19 1009 �� Report #: [id number] �������� ��������������������������������������������[id number] THIS REPORT FOR: //name// APPROVED REPORT Study performed: 04/01/2019 09:14:07 EXAM: Comprehensive 2D, Doppler, and color-flow Echocardiogram Patient Location: Out-Patient Status: routine BSA: 2.20 HR: 70 bpm BP: 150/90 mmHg Rhythm: Pacemaker Other Information Study Quality: Good Indications CAD Hx: CABG, CHB, pacemaker. 2D Dimensions RVDd: 39.69 mm IVSd: 12.11 (7-11mm) LVOT Diam: 21.85 (18-24mm) LVDd: 52.89 mm PWd: 11.00 (7-11mm) Ascending Ao: 34.28 (22-36mm) LVDs: 41.15 (25-40mm) Aortic Root: 37.59 mm Volumes Left Atrial Volume (Systole) Single Plane 4CH: 39.96 mL Single Plane 2CH: 70.72 mL LA ESV Index: 27.00 mL/m2 Aortic Valve AoV Peak Herber.: 2.04 m/s AO Peak Gr.: 16.59 mmHg LVOT Max P.25 mmHg AO Mean Gr.: 9.32 mmHg AO V2 Mean: 1.45 m/s LVOT Max V: 0.90 m/s AO V2 VTI: 41.55 cm ANA Vmax: 1.66 cm2 Mitral Valve [facility] [address] [place] [address] 2 D/M-MODE ECHOCARDIOGRAM Name: MICHELLE WAY [facility] Room #: [facility]#: [id number] ������������� Admission: 04/01/19 ������������� Attend Phys: Say Braga MD Discharge: ��� ������������� ��� Date of : 35 Date of Service: 04/01/19 1009 �� Report #: [id number] �������� ��������������������������������������������[id number] MV Decel. Time: 105.01 ms MV E Max Herber.: 1.10 m/s Pulmonary Valve PV Peak Herber.: 1.05 m/s PV Peak Gr.: 4.42 mmHg Pulmonary Vein P Vein S: 0.90 m/s Tricuspid Valve TR Peak Herber.: 2.27 m/s RAP Estimate: 5.00 mmHg TR Peak Gr.: 20.68 mmHg PA Pressure: 26.00 mmHg Left Ventricle The left ventricle is normal size. There is hypokinesis of the distal anteroapical and inferior segments. Mild basal septal hypertrophy is present. Left ventricular systolic function is moderate to severely decreased. LVEF is 35%. This study is not technically sufficient to allow evaluation of the LV diastolic function. Right Ventricle The right ventricle is normal size. Pacemaker lead is present in the right ventricle. Atria The left atrium size is normal. Right atrium is mildly dilated. Aortic Valve Aortic valve leaflets are moderately thickened and calcified. Mild to moderate aortic regurgitation. There is mild valvular aortic stenosis. Calculated aortic valve area is 1.7 cm2 with maximum pressure gradient of 17 mmHg and mean pressure gradient of 9 mmHg. Mitral Valve Mitral valve leaflets are mildly thickened. Mild mitral regurgitation. Tricuspid Valve The tricuspid valve is normal in structure. Mild tricuspid regurgitation. Estimated PAP is 25-30mmHg. Pulmonic Valve The pulmonary valve is normal in structure. Mild pulmonic [facility] [address] [place] [address] 2 D/M-MODE ECHOCARDIOGRAM Name: MICHELLE WAY [place] Room #: REG [facility]#: [id number] ������������� Admission: 04/01/19 ������������� Attend Phys: Say Braga MD Discharge: ��� ������������� ��� Date of : 35 Date of Service: 04/01/19 1009 �� Report #: [id number] �������� ��������������������������������������������[id number] regurgitation. Great Vessels Aortic root is borderline dilated. The ascending aorta is normal in size. IVC is normal in size and collapses >50% with inspiration. Pericardium There is no pericardial effusion. <Conclusion> The left ventricle is normal size. Left ventricular systolic function is moderate to severely decreased. The right ventricle is normal size. The left atrium size is normal. Mild to moderate aortic regurgitation. There is mild valvular aortic stenosis. Mild mitral regurgitation. Mild tricuspid regurgitation. Estimated PAP is 25-30mmHg. ��������������������������������������������� <ELECTRONICALLY SIGNED> ���������������������������������������� By: Say Braga MD ��������������������������������������������� 04/01/19 1009 100 08 Say Braga MD /INF
== END ==
LOC: CV 08:55
DX: I08.8 Other rheumatic multiple valve diseases (principal); I25.10 Atherosclerotic heart disease of native coronary artery without angina pectoris; Z95.1 Presence of aortocoronary bypass graft; Z95.0 Presence of cardiac pacemaker

== ENCOUNTER → 2019-04-15 | Outpatient (CLI) | payer OTHER | LOC: NUC 11:37 | DX: E78.5 Hyperlipidemia, unspecified (principal); I11.0 Hypertensive heart disease with heart failure; I50.9 Heart failure, unspecified; Z87.891 Personal history of nicotine dependence; Z95.0 Presence of cardiac pacemaker ==

== ENCOUNTER → 2019-10-12 | Outpatient (CLI) | payer OTHER ==
[~2019-10-12] MED LIST changes: +AUGMENTIN 875-1 EACH PO; +CARVEDILOL12.5 MG PO; +FLOMAX0.4 MG PO; +GLUCOSAMINE &1 EACH PO; +LIPITOR40 MG PO; +LISINOPRIL2.5 MG PO
== END ==
LOC: SJCVC 11:45
DX: Z45.018 Encounter for adjustment and management of other part of cardiac pacemaker (principal); R94.31 Abnormal electrocardiogram [ECG] [EKG]; I25.5 Ischemic cardiomyopathy; I42.8 Other cardiomyopathies; I44.2 Atrioventricular block, complete; I10 Essential (primary) hypertension; I48.0 Paroxysmal atrial fibrillation; I25.810 Atherosclerosis of coronary artery bypass graft(s) without angina pectoris; E78.5 Hyperlipidemia, unspecified; Z95.1 Presence of aortocoronary bypass graft; Z79.82 Long term (current) use of aspirin; Z79.899 Other long term (current) drug therapy; Z87.891 Personal history of nicotine dependence

== ENCOUNTER → 2019-10-14 | Outpatient (CLI) | payer OTHER ==
[~2019-10-14] MED LIST changes: -AUGMENTIN 875-1 EACH PO; -CARVEDILOL12.5 MG PO; -FLOMAX0.4 MG PO; -GLUCOSAMINE &1 EACH PO; -LIPITOR40 MG PO; -LISINOPRIL2.5 MG PO
== END ==
LOC: SJCVCIMAG 07:41
DX: I08.2 Rheumatic disorders of both aortic and tricuspid valves (principal); I27.20 Pulmonary hypertension, unspecified; I44.2 Atrioventricular block, complete; I48.0 Paroxysmal atrial fibrillation; I25.119 Atherosclerotic heart disease of native coronary artery with unspecified angina pectoris; Z95.0 Presence of cardiac pacemaker

== ENCOUNTER → 2019-10-29 | Outpatient (CLI) | payer OTHER | LOC: SJCVCIMAG 13:13 | DX: I25.119 Atherosclerotic heart disease of native coronary artery with unspecified angina pectoris (principal); I42.9 Cardiomyopathy, unspecified; I48.0 Paroxysmal atrial fibrillation; I10 Essential (primary) hypertension; I44.2 Atrioventricular block, complete; Z87.891 Personal history of nicotine dependence ==

== ENCOUNTER 2019-11-12 06:40 | Observation (INO) | payer OTHER ==
[~2019-11-12] VITALS: Ht 188 cm; Wt 87.5 kg
[2019-11-12 07:30] LABS: ABSOLUTE NEUTROPHILS 4.7 thou/uL (1.4-8.2); BASOPHILS 0.6 % (0.0-2.0); EOSINOPHILS 4.5 % (0.0-3.0); HEMATOCRIT 42.8 % (42.0-52.0); HEMOGLOBIN 13.9 gm/dL (14.0-18.0); MCH 28.3 pg (26.0-34.0); MCHC 32.4 g/dL (28.0-37.0); MCV 87.4 fL (80.0-100.0); MONOCYTES 10.5 % (1.0-8.0); PLATELET COUNT 207 thou/uL (150-400); POLYS 72.4 % (36.0-66.0); RDW 14.2 % (10.5-14.5); WBC 6.5 thou/uL (4.0-11.0)
[2019-11-12 07:36] VITALS: BP 174/101
[2019-11-12] MEDS ORDERED: FLOMAX0.4 MG PO (07:45)
[2019-11-12] MEDS ORDERED: LIPITOR40 MG PO (07:45)
[2019-11-12] MEDS ORDERED: CARVEDILOL12.5 MG PO (07:45)
[2019-11-12] MEDS ORDERED: GLUCOSAMINE &1 EACH PO (07:46)
[2019-11-12] MEDS ORDERED: LISINOPRIL2.5 MG PO (07:46)
[2019-11-12 07:47] LABS: INR 1.2
[2019-11-12] MEDS ORDERED: AUGMENTIN 875-1 EACH PO (07:47)
[2019-11-12 07:54] LABS: ALBUMIN 3.4 g/dL (3.4-5.0); CALCIUM 8.9 mg/dL (8.5-10.1); CREATININE 1.2 mg/dL (0.7-1.3); POTASSIUM 3.9 mmol/L (3.5-5.1); TOTAL BILIRUBIN 0.9 mg/dL (<0.1-1.0); TOTAL PROTEIN 6.4 g/dL (6.4-8.2)
[2019-11-12 12:30] VITALS: BP 174/101
--- NOTE | 2019-11-12 14:55 | NUR ---
ASSUMED CARE AT 1100, SHIFT ASSESSMENT DONE, MEDS GIVEN, ADMISSION DONE. DENIES PAIN, NAUSEA, VOMITING. POST PACEMAKER PLACEMENT, LEFT CHEST SITE IS CLEAN, DRY, INTACT, HAS GLUE ON IT. CARLISLE IN PLACE, BEDREST UNTIL TOMORROW WITH BATHROOM PRIVILAGES. WILL CONTINUE TO ASSESS AND ASSIST WITH ADLs as NEEDED.
--- NOTE | 2019-11-12 15:25 | NUR ---
ASSUMED CARE OF PT APPROX 1430, HE WAS UP WALKING TO RESTROOM WITH AIDE. STRONGLY ENCOURAGED HIM TO USE BSC D/T POSSIBILITY, NO MATTER HOW REMOTE, OF A FALL AND IMPLICATIONS FOR HIS PACEMAKER. A&0X4, AMB W/STEADY GAIT. FAMILY AT BEDSIDE. SEE SEPARATE INTERVENTIONS FOR ASSESSMENTS. WILL CONTINUE TO MONITOR. ENCOURAGED PT AND FAMILY TO USE CALL LIGHT FOR ANY NEEDS
[2019-11-12 18:25] VITALS: BP 129/82
[2019-11-12 20:10] VITALS: BP 147/72
[2019-11-12 23:57] VITALS: BP 148/90
--- NOTE | 2019-11-13 03:04 | NUR ---
ASSUMED CARE 1900. PT ALERT AND ORIENTED. VSS. PT ON BEDREST S/P PACEMAKER REVISION. DENIES CHEST PAIN, NAUSEA OR VOMITING. PT REQUEST CATHETER TO BE PULLED THIS MORNING PRIOR TO DC. CHEST XRAY THIS AM. WILL CONYNUE TO MONITOR.
[2019-11-13 06:25] VITALS: BP 121/88
--- NOTE | 2019-11-13 07:40 | NUR ---
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 SAID IT WAS NOISY OUT IN THE HALLS LAST NIGHT YET DIDN'T ASK TO HAVE THE DOOR SHUT, PT URINATING FULLY. SEE SEPARATE INTERVENTIONS FOR ASSESSMENTS. IMMOBILIZER IN PLACE, AMB STEADY AND SLOWLY. IS NOT IMPULSIVE. ENCOURAGED HIM TO USE CALL LIGHT FOR ANY NEEDS. GAVE INSTRUCTION ABOUT D/C PROTOCOL SHOULD IT OCCUR TODAY, HE STATES UNDERSTANDING.
[2019-11-13 09:37] VITALS: BP 121/88
[2019-11-13 09:54] VITALS: BP 112/64
--- NOTE | 2019-11-17 09:44 | P ---
[facility] [place] [address] PROCEDURE REPORT Name: MICHELLE WAY [facility] Room #: [facility] [place]note 2[place] Cuong Nugent#: [id number] Admission: 11/12/19 Attend Phys: Josesito Jenkins MD Discharge: 11/13/19 Date of : 35 Report #: [id number] THIS REPORT FOR: cc: Ranjith Miramontes MD, David A. MD Couchonnal,Josesito Woodrad MD ~ CC: Ranjith Jenkins PROCEDURE: Upgrade to a BiV pacemaker. PREOPERATIVE DIAGNOSES: 1. History of complete heart block, status post pacemaker implantation. 2. Pacemaker induced cardiomyopathy. 3. Coronary artery disease, status post coronary artery bypass graft. 4. Ischemic cardiomyopathy. 5. [place] Heart Association functional class 2-3 heart failure. 6. Chronic left ventricular systolic heart failure. 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 Subsequently, he was found to have significant coronary artery disease and underwent coronary artery bypass surgery. The patient has developed worsening LV systolic function with [place] Heart Association functional class 2-3 heart failure symptoms, which is likely related to a component of ischemic cardiomyopathy and chronic right ventricular pacing-induced cardiomyopathy. Recent echo shows an EF of 40%. He is therefore here for upgrade to a biventricular pacemaker. ANESTHESIA: The patient underwent MAC anesthesia with no anesthesia related complications. DESCRIPTION OF PROCEDURE: The patient underwent informed consent. We discussed the details of the procedure including the risks, which include but not limited to bleeding, infection, vascular damage, cardiac perforation and pneumothorax. He understood these risks and is willing to proceed. The patient was brought to EP laboratory in fasting and sedated state, prepped and draped in a sterile fashion, underwent venogram showing patency of left axillary vein and received IV antibiotics prior to initiation of the procedure. Next, I injected lidocaine at the incision site. Incision was made, the chronic pocket was entered. [address] [address] PROCEDURE REPORT Name: R[facility]NAM[facility]LE [facility] Room #: [facility] [place][note 2]-[facility] Cuong Nugent#: [id number] Admission: 11/12/19 Attend Phys: Josesito Jenkins MD Discharge: 11/13/19 Date of : 35 Report #: [id number] DICTATION ENDS HERE. <ELECTRONICALLY SIGNED> By: Josesito Jenkins MD 11/17/19 0944 1015 1323 Josesito Jenkins MD /nt
--- NOTE | 2019-11-17 09:44 | P ---
[facility] [place] [address] PROCEDURE REPORT Name: MICHELLE WAY [facility] [place] Room #: 206-P [facility] Cuong Nugent#: [id number] Admission: 11/12/19 Attend Phys: Josesito Jenkins MD Discharge: 11/13/19 Date of : 35 Report #: [id number] THIS REPORT FOR: cc: Ranjith Miramontes MD, David A. MD Couchonnal,Josesito Woodard MD ~ CC: Ranjith Jenkins DATE OF SERVICE: 11/12/2019 UPGRADE TO A Bi-V PACEMAKER PREOPERATIVE DIAGNOSES: 1. Pacemaker induced cardiomyopathy. 2. Ischemic cardiomyopathy. 3. Complete heart block, status post pacemaker implantation. 4. [place] Heart Association functional class 2-3 heart failure. 5. Chronic left ventricular systolic heart failure. PROCEDURE PERFORMED: Upgrade to a Bi-V pacemaker. HISTORY: The patient is an 84-year-old male who has a history of complete heart block, status post [employer] Elliott pacemaker implantation in the past. Subsequently, he was found to have a significant coronary artery disease requiring bypass surgery. Recently, the patient has been having worsening heart failure symptoms, which is likely due to a mixture of ischemic cardiomyopathy and chronic right ventricular pacing-induced cardiomyopathy. He has [place] Heart Association functional class 2-3 heart failure symptoms with an ejection fraction of 40%. He is therefore here for upgrade to a Bi-V pacemaker. ANESTHESIA: The patient underwent MAC anesthesia with no anesthesia related complications. DESCRIPTION OF PROCEDURE: The patient underwent informed consent. We discussed the details of the procedure including the risks, which include but not limited to bleeding, infection, vascular damage, cardiac perforation, pneumothorax. He understood these risks and is willing to proceed. The patient was brought to the EP laboratory in fasting and sedated state and received IV antibiotics and underwent a venogram showing patency of the left axillary vein. Next, lidocaine was injected. An incision was made, the chronic pocket was entered and I enlarged the pocket to make room for the larger pacemaker. Next, I obtained access to left axillary vein x 1 and placed a sheath using modified Seldinger technique. Next, I placed a coronary sinus guide sheath into the coronary sinus fairly quickly. I performed a venogram and [facility] [address] [place] [place] [address] PROCEDURE REPORT Name: MICHELLE WAY [facility] [place] Room #: [address] [place], [place] [address]Gabriela.#: [id number] Admission: 11/12/19 Attend Phys: Josesito Jenkins MD Discharge: 11/13/19 Date of : 35 Report #: [id number] there was a nice posterolateral branch and an anterolateral branch. Next, I attempted to position lead into this posterior lateral branch. I get the wire to go in, but the lead would not track into the vessel. I therefore used an inner sheath and again had significant difficulties engaging this branch. I took images in multiple views and eventually advance my guidewire up into an anterolateral branch and I was able to deliver the lead here with great pacing and sensing thresholds and no diaphragmatic stim. As such, the lead was split and the lead remained in position. The lead was sutured to the prepectoral fascia and then the leads were connected to the new device. Tug tests were performed and the leads were found to be functioning normally. The pocket was irrigated with vancomycin and then closed in 2 layers and suture glue was placed in outer skin layer. The patient awoke neurologically and hemodynamically intact. No complications and no significant bleeding. The explanted pacemaker was a [employer] open cut examiner originally implanted in 04/2016. The newly implanted device was a [employer] model #3562, serial #[id number] with an atrial lead model #2088TC, 52 cm, serial #[id number]. RV lead that was a [employer] model #2088TC, 58 cm, serial #[id number] and a LV lead that is a [employer], model #1458Q, 86 cm, serial #[id number]. Atrial lead demonstrated P waves of 1.3 millivolts, pacing impedance of 410 ohms, pacing threshold 1 volt at 0.4 milliseconds. RV lead showed no underlying R waves, pacing impedance of 410 ohms and a pacing threshold of 1 volt at 0.4 milliseconds. The LV lead demonstrated a pacing impedance of 640 ohms and a pacing threshold of 1.5 volts at 0.6 milliseconds and the pacing configuration utilized was M3-P4 in order to promote most basal pacing. The device was programmed to the DDDR 70-130 mode with the LV lead pacing 30 milliseconds prior to the RV lead, which resulted in the narrowest QRS complex and a nice R-wave in lead V1. CONCLUSIONS: 1. Successful upgrade to a Bi-V pacemaker. 2. Satisfactory atrial, right ventricular and left ventricular pacing and sensing thresholds. <ELECTRONICALLY SIGNED> By: Josesito Jenkins MD 11/17/19 0944 1055 1808 Josesito Jenkins MD /nt
== END 2019-11-13 11:09 | disposition home or self-care (01) ==
LOC: CATH 06:40 → 2N 06:44 → CATH 13:22 → 2N 11-13 11:09
PROVIDERS: ADMIT Internal Medicine Cardiovascular Disease
DX: Z45.010 Encounter for checking and testing of cardiac pacemaker pulse generator [battery] (principal); I44.2 Atrioventricular block, complete; I25.5 Ischemic cardiomyopathy; I25.10 Atherosclerotic heart disease of native coronary artery without angina pectoris; I50.32 Chronic diastolic (congestive) heart failure; I50.1 Left ventricular failure, unspecified
CPT/HCPCS: 62110; 62900; 70005

== ENCOUNTER → 2019-11-18 | Outpatient (CLI) | payer OTHER ==
[~2019-11-18] MED LIST changes: +AUGMENTIN 875-1 EACH PO; +CARVEDILOL12.5 MG PO; +FLOMAX0.4 MG PO; +GLUCOSAMINE &1 EACH PO; +LIPITOR40 MG PO; +LISINOPRIL2.5 MG PO
== END ==
LOC: SJCVC 13:52
DX: Z45.018 Encounter for adjustment and management of other part of cardiac pacemaker (principal); I25.10 Atherosclerotic heart disease of native coronary artery without angina pectoris; I10 Essential (primary) hypertension; E78.5 Hyperlipidemia, unspecified; I48.0 Paroxysmal atrial fibrillation; Z95.1 Presence of aortocoronary bypass graft; Z79.899 Other long term (current) drug therapy; Z87.891 Personal history of nicotine dependence

== ENCOUNTER → 2020-02-16 | Outpatient (CLI) | payer OTHER | LOC: SJCVC 13:05 | PROVIDERS: ATTEND Internal Medicine Cardiovascular Disease | DX: Z45.018 Encounter for adjustment and management of other part of cardiac pacemaker (principal); R94.31 Abnormal electrocardiogram [ECG] [EKG]; I44.2 Atrioventricular block, complete; I25.10 Atherosclerotic heart disease of native coronary artery without angina pectoris; I25.5 Ischemic cardiomyopathy; Z79.899 Other long term (current) drug therapy; Z87.891 Personal history of nicotine dependence ==

== ENCOUNTER → 2020-05-08 | Outpatient (CLI) | payer OTHER | LOC: SJCVC 13:58 | PROVIDERS: ATTEND Internal Medicine Cardiovascular Disease | DX: I48.0 Paroxysmal atrial fibrillation (principal); I25.119 Atherosclerotic heart disease of native coronary artery with unspecified angina pectoris; I44.2 Atrioventricular block, complete; I25.5 Ischemic cardiomyopathy; Z95.1 Presence of aortocoronary bypass graft; Z79.899 Other long term (current) drug therapy; Z87.891 Personal history of nicotine dependence ==

== ENCOUNTER 2020-05-15 17:12 | Emergency (ER) | payer OTHER ==
[~2020-05-15] VITALS: Ht 188 cm; Wt 81.7 kg
[2020-05-15 17:45] LABS: ABSOLUTE NEUTROPHILS 7.1 thou/uL (1.4-8.2); EOSINOPHILS 1.5 % (0.0-3.0); HEMATOCRIT 37.7 % (42.0-52.0); HEMOGLOBIN 12.4 gm/dL (14.0-18.0); LYMPHOCYTES 10.5 % (24.0-44.0); MCH 27.8 pg (26.0-34.0); MCHC 32.9 g/dL (28.0-37.0); MCV 84.5 fL (80.0-100.0); MONOCYTES 9.2 % (1.0-8.0); PLATELET COUNT 305 thou/uL (150-400); POLYS 77.8 % (36.0-66.0); RBC 4.47 mil/uL (4.50-6.00); RDW 15.1 % (10.5-14.5); WBC 9.1 thou/uL (4.0-11.0)
[2020-05-15 18:03] LABS: URINE BILIRUBIN NEGATIVE (Negative); URINE BLOOD NEGATIVE (Negative); URINE CLARITY CLEAR; URINE COLOR YELLOW; URINE GLUCOSE-RANDOM* NEGATIVE (Negative); URINE KETONES NEGATIVE (Negative); URINE LEUKOCYTES-REFLEX NEGATIVE (Negative); URINE NITRITE-REFLEX NEGATIVE (Negative); URINE PROTEIN (DIPSTICK) NEGATIVE (Negative); URINE SPECIFIC GRAVITY 1.015 (1.005-1.035); URINE UROBILINOGEN 0.2 E.U./dl (0.2-1.0)
[2020-05-15 18:04] LABS: ANION GAP 9 mmol/L (7-16); BUN 17 mg/dL (7-18); CALCIUM 9.2 mg/dL (8.5-10.1); CHLORIDE 102 mmol/L (98-107); CO2 26 mmol/L (21-32); GLUCOSE 99 mg/dL (74-106); SODIUM 137 mmol/L (136-145)
[2020-05-15 18:15] LABS: ALBUMIN 3.1 g/dL (3.4-5.0); MAGNESIUM 1.8 mg/dL (1.8-2.4); SGOT 29 U/L (15-37); SGPT 31 U/L (30-65); TOTAL BILIRUBIN 0.7 mg/dL (0.2-1.0); TOTAL PROTEIN 6.8 g/dL (6.4-8.2); TROPONIN-I <0.06 ng/mL (<0.06)
[2020-05-15 21:13] VITALS: BP 164/87
--- NOTE | 2020-05-16 08:25 | EKG ---
[facility] [place] [address] ELECTROCARDIOGRAM REPORT Name: RAYNAMICHELLE [facility] [id number] Admission: 05/15/20 Attend Phys: Discharge: 05/15/20 Date of : 35 Report #: [id number] THIS REPORT FOR: cc: Ranjith Miramontes MD, David A. 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: : 1935 Requested By: Rancho Tobar Order Number: [id number] MD: Vince Moyer Measurements Intervals [place] Rate: 70 P: 21 PA: 181 QRS: 164 QRSD: 138 T: -23 QT: 423 QTc: 457 Interpretive Statements Atrial-ventricular dual-paced rhythm No further analysis attempted due to paced rhythm Baseline wander in lead(s) V3,V4 Compared to ECG 01/09/2019 07:11:51 No significant change was found Electronically Signed On 05-16-2020 8:25:47 CDT by Vince Moyer [email or web address] <ELECTRONICALLY SIGNED> By: Vince Moyer MD, [facility] 05/16/20 0825 1729 1729 Vince Moyer MD, [facility] /EPI
== END 2020-05-15 21:14 | disposition home or self-care (01) ==
LOC: ER 17:12
PROVIDERS: Emergency Medicine
DX: M48.02 Spinal stenosis, cervical region (principal); I25.10 Atherosclerotic heart disease of native coronary artery without angina pectoris; R53.1 Weakness; R20.2 Paresthesia of skin; R55 Syncope and collapse; I10 Essential (primary) hypertension; E78.5 Hyperlipidemia, unspecified; K21.9 Gastro-esophageal reflux disease without esophagitis; I48.91 Unspecified atrial fibrillation; Z95.0 Presence of cardiac pacemaker; Z90.49 Acquired absence of other specified parts of digestive tract; Z87.891 Personal history of nicotine dependence

== ENCOUNTER → 2020-05-19 | Outpatient (CLI) | payer OTHER | LOC: SJCVC 13:23 | PROVIDERS: ATTEND Internal Medicine Cardiovascular Disease | DX: I25.810 Atherosclerosis of coronary artery bypass graft(s) without angina pectoris (principal); R55 Syncope and collapse; I25.5 Ischemic cardiomyopathy; I44.2 Atrioventricular block, complete; I10 Essential (primary) hypertension; M17.0 Bilateral primary osteoarthritis of knee; E78.5 Hyperlipidemia, unspecified; I48.0 Paroxysmal atrial fibrillation; Z95.1 Presence of aortocoronary bypass graft; Z87.891 Personal history of nicotine dependence; Z82.49 Family history of ischemic heart disease and other diseases of the circulatory system; Z95.0 Presence of cardiac pacemaker; Z79.82 Long term (current) use of aspirin; Z79.899 Other long term (current) drug therapy ==

== ENCOUNTER → 2020-06-29 | Outpatient (CLI) | payer OTHER | LOC: SJCVC 14:23 | PROVIDERS: ATTEND Internal Medicine Cardiovascular Disease | DX: I25.10 Atherosclerotic heart disease of native coronary artery without angina pectoris (principal); R55 Syncope and collapse; I10 Essential (primary) hypertension; I48.0 Paroxysmal atrial fibrillation ==

== ENCOUNTER 2020-10-27 16:04 | Inpatient (IN) | payer OTHER ==
[~2020-10-27] VITALS: Ht 188 cm; Wt 84.6 kg
--- NOTE | ~2020-10-27 | EMS ---
[facility] [address] [place] [address] EMS Patient Care Report Name: MICHELLE WAY GENE Room #: REG DYLON Nugent#: [id number] Admission: 10/27/20 Attend Phys: Discharge: Date of : 35 Report #: [id number] THIS REPORT FOR: //name// Report Transmitted: 10/27/2020 15:50 EMS Care Summary [facility] MED-ACT Incident [id number] @ 10/27/2020 15:08 Incident Location [address] [place] [address] Male, 85 Years 1935 Patient Address [address] [place] [address] Patient History Hypertension (HTN),Pacemaker/AICD,Coronary Artery Bypass Graft (CABG),Myocardial Infarction (NH), Patient Allergies No known allergies, Patient Medications Lexapro, Carvedilol, Tamsulosin, Pantoprazole, ASA, Atorvastatin, Lisinopril, Pradaxa, Chief Complaint Hip pain Disposition Transported No Lights/[place] Dis[place] Reason Falls Transported To [facility] Narrative Dispatched to Fall. Upon our arrival, patient is laying supine on kitchen floor of personal residence. He is AOx4. He has no increased work of breathing [facility] [address] [place] [address] EMS Patient Care Report Name: MICHELLE WAY Room #: REG DYLON Nugent#: [id number] Admission: 10/27/20 Attend Phys: Discharge: Date of : 35 Report #: [id number] and respirations are adequate in depth and rate. He looks perfused in color for ethnicity and has strong radials. Fire and patient report: Patient has been having increased dizziness over the past couple of months. He was walking into the house and at the beginning of assessment he reports that he became dizzy and fell. At first he reports that he didn't have a loss of consciousness and he thinks that "he might have hit his head, but it wasn't the biggest source of impact." Later, during transport, patient reports that he "might have passed out because it's pretty fuzzy what happened." Patient denies any head/neck/back pain and just reports pain on his left side, especially his left hip. He initially reports feeling dizzy but notes improvement as he lays flat throughout transport. He says he feels "a little short of breath." He denies any chest pain, N/V, headache, visual disturbances or weakness. Vitals, PMH, physical exam obtained and as documented. BP was hypertensive and patient reported that "he hadn't taken his afternoon blood pressure medication yet." When it was found out that patient is taking a blood thinner and potentially hit his head, [facility] was contacted to see if they would accept him as a patient. [facility] told [id number] they would accept him. Patient was lifted via scoop stretcher and carried to the cot where he was secured with straps plus rails. He was put in a position of comfort with legs bent. 12 Lead, bG and IV obtained in the back of ambulance. [facility] contacted again via radio. Vitals monitored throughout transport. Cot wheeled to hallway bed where he was lifted via total lift without incident. Report given to RN and PM. Initial Vitals @15:49P: 47,BP: 191/104,SpO2: 96, @15:39P: 63,NH Suspected: false @15:36P: 69,R: 16,BP: 191/110,Pain: 4/10,GCS: 15,Temp: 97.4F,Glucose: 111,Revised Trauma: 12, @16:00P: 43,BP: 184/97,SpO2: 98, @15:55P: 38,SpO2: 98, Assessments @15:21MENTAL:Person Oriented,Time Oriented,Place Oriented,Event Oriented,SKIN:HEENT:Head/Face: No Abnormalities,Neck/Airway: No Abnormalities,LUNG SOUNDS:General: No Abnormalities,ABDOMEN:General: No Abnormalities,PELVIS//GI:Pelvis Other,Tenderness,EXTREMITIES:Left Leg: Abnormal Sensation,Left Leg: Weakness,Left Leg: Other,Left Arm: Other,Right Arm: No Abnormalities,Right Leg: No Abnormalities,PULSE:Radial: 2+ Normal,NEURO:No Abnormalities, Impression Injury of Hip Procedures @15:3912-Lead ECGResponse: UnchangedSucceeded@15:48Saline Lock 10cc (18 ga) [facility] [address] [place] [address] EMS Patient Care Report Name: MICHELLE WAY GENE Room #: REG DYLON Nugent#: [id number] Admission: 10/27/20 Attend Phys: Discharge: Date of : 35 Report #: [id number] Site: Antecubital-RightResponse: [email or web address] Mask on PatientResponse: Unchanged@15:28BandagingResponse: UnchangedSucceeded@15:31Scoop StretcherResponse: Unchanged Timeline FUEL BUYER,Surgical Mask on Patient,Response: Unchanged 15:06,Call Received 15:06,Psap Call 15:08,Dispatched 15:09,En Route 15:19,On Scene 15:20,At Patient 15:28,Bandaging,Response: UnchangedSucceeded, 15:31,Scoop Stretcher,Response: Unchanged 15:36,BP: 191/110 M,PULSE: 69,RR: 16 R,SPO2: Ox,ETCO2: ,B,PAIN: 4,GCS: 15, 15:37,Depart Scene 15:39,12-Lead ECG,Response: UnchangedSucceeded, 15:39,BP: / M,PULSE: 63,RR: R,SPO2: Ox,ETCO2: ,BG: ,PAIN: ,GCS: , 15:48,Saline Lock 10cc 18 ga Site: Antecubital-Right,Response: UnchangedSucceeded, 15:49,BP: 191/104 M,PULSE: 47,RR: R,SPO2: 96 Ox,ETCO2: ,BG: ,PAIN: ,GCS: , 15:55,BP: / M,PULSE: 38,RR: R,SPO2: 98 Ox,ETCO2: ,BG: ,PAIN: ,GCS: , 16:00,BP: 184/97 M,PULSE: 43,RR: R,SPO2: 98 Ox,ETCO2: ,BG: ,PAIN: ,GCS: , 16:00,At Destination 16:30,Call Closed Disclaimer v1.1 Copyright 2020 [employer] This EMS Care Summary contains data elements from the applicable legal record (which may be displayed differently). It is designed to provide pertinent information for the following purposes: continuity of care, clinical quality, and state data reporting. The complete legal record is available to ED staff and administrators of the receiving hospital in [facility]'s Patient Tracker. All data is provided "as is."
[2020-10-27 16:05] VITALS: BP 182/103
[2020-10-27] MEDS ORDERED: LISINOPRIL5 MG PO (16:34)
[2020-10-27] MEDS ORDERED: DOXYCYCLINE HY100 M3 PO (16:34)
[2020-10-27] MEDS ORDERED: ESCITALOPRAM OX20 MG PO (16:34)
[2020-10-27] MEDS ORDERED: PRADAXA150 MG PO (16:34)
[2020-10-27] MEDS ORDERED: CARVEDILOL12.5 MG PO (16:34)
[2020-10-27 18:04] LABS: ABSOLUTE NEUTROPHILS 12.2 thou/uL (1.4-8.2); BASOPHILS 1.4 % (0.0-2.0); EOSINOPHILS 1.5 % (0.0-3.0); HEMATOCRIT 41.3 % (42.0-52.0); HEMOGLOBIN 13.2 gm/dL (14.0-18.0); LYMPHOCYTES 4.3 % (24.0-44.0); MCH 26.8 pg (26.0-34.0); MCHC 31.9 g/dL (28.0-37.0); MONOCYTES 5.8 % (1.0-8.0); PLATELET COUNT 218 thou/uL (150-400); RBC 4.91 mil/uL (4.50-6.00); RDW 15.7 % (10.5-14.5)
[2020-10-27 18:16] LABS: ANION GAP 8 mmol/L (7-16); BUN 19 mg/dL (7-18); CALCIUM 9.5 mg/dL (8.5-10.1); CHLORIDE 104 mmol/L (98-107); CO2 28 mmol/L (21-32); CREATININE 1.1 mg/dL (0.7-1.3); GLUCOSE 96 mg/dL (74-106); POTASSIUM 4.1 mmol/L (3.5-5.1); SODIUM 140 mmol/L (136-145)
[2020-10-27 18:24] LABS: TROPONIN-I <0.06 ng/mL (<0.06)
[2020-10-28] VITALS (13 sets, daily range): BP systolic 109–164; BP diastolic 64–91
[2020-10-28] LABS: URINE BILIRUBIN NEGATIVE (Negative); URINE BLOOD 2+ (Negative); URINE CLARITY CLEAR; URINE COLOR YELLOW; URINE GLUCOSE-RANDOM* NEGATIVE (Negative); URINE KETONES 1+ (Negative); URINE LEUKOCYTES-REFLEX NEGATIVE (Negative); URINE NITRITE-REFLEX NEGATIVE (Negative); URINE PROTEIN (DIPSTICK) NEGATIVE (Negative)
[2020-10-28 00:21] LABS: BACTERIA-REFLEX 1-9 Few /HPF (None Seen); SQUAMOUS 0-3 Few /LPF (0-3); URINE WBC-REFLEX 0-5 Rare /HPF (0-5)
[2020-10-28 00:22] LABS: CASTS None Seen /LPF (None Seen); CRYSTALS None Seen /LPF (None Seen); MUCUS 0-3 Light strn/LPF (None Seen)
--- NOTE | 2020-10-28 06:46 | NUR ---
ASSUME CARE FROM ED STAFF 0500. PT/VITALS STABLE. PT RATES LEFT HIP PAIN AT 4 AND SEEMS TO BE OK WITH IMMOBILIZATION. SCDS PLACED.A/O X 4. PERRLA. ASSESSMENT CHARTED. PROGRESSING WELL WITH POC. PLAN IS FOR CARDIOLOGY AND ORTHOPEDICS TO SEE PT AND WILL FOLLOW WITH POC FROM SPECIALIST POINT OF VIEW. WILL CONTINUE TO MONITOR AND FOLLOW WITH POC
--- NOTE | 2020-10-28 10:55 | EKG ---
[address] [place] [address] ELECTROCARDIOGRAM REPORT Name: RAYNAMICHELLE GENE Room #: 209-P ADM IN M.R.#: [id number] Admission: 10/27/20 Attend Phys: Kaylene Andrea Discharge: Date of : 35 Report #: [id number] [facility] ED Test Date: 2020-10-27 Test Time: 19:08:28 Pat Name: MICHELLE WAY Department: Room: 209 Gender: M Parts Coordinator: MEENA : 1935 Requested By: Kang Cota Order Number: [id number] MD: Josesito Jenkins Measurements Intervals [place] Rate: 70 P: 70 UT: 163 QRS: 158 QRSD: 153 T: -23 QT: 446 QTc: 482 Interpretive Statements Atrial-ventricular dual-paced rhythm No further analysis attempted due to paced rhythm Compared to ECG 05/15/2020 17:29:22 No significant changes Electronically Signed On 10-28-2020 10:55:34 HIGH RIGGER by Josesito Jenkins [email or web address] <ELECTRONICALLY SIGNED> By: Josesito Jenkins MD 10/28/20 1055 07 07 Josesito Jenkins MD /GABBY
--- NOTE | 2020-10-28 15:06 | NUR ---
PT IS AXOX4, PLEASANT. PT HAD L HIP FX. PT WENT TO [facility] THIS AM. PT RETURNED THIS AFTERNOON. FAMILY NOTIFIED. PT ON 1L NC POST ANESTHESIA. FALL PRECAUTIONS IN PLACE. NO CONCERNS AT THIS TIME.
[2020-10-28 16:46] LABS: HEMOGLOBIN 11.8 gm/dL (14.0-18.0); MCH 26.8 pg (26.0-34.0); MCHC 31.9 g/dL (28.0-37.0); MCV 84.1 fL (80.0-100.0); RBC 4.4 mil/uL (4.50-6.00); RDW 16.3 % (10.5-14.5); WBC 15.7 thou/uL (4.0-11.0)
--- NOTE | 2020-10-28 16:58 | NUR ---
ASSUMMED PT CARE AT APPROXIMATELY 0700. PT A&O X4. ASSESSMENT CHARTED. FALL PRECAUTIONS IN PLACE. PT DENIES HAVING CHEST PAIN. PT DENIES HAVING SOB. PT STATED HIS L HIP HAD PAIN. PT RECEIVED ANALGESICS. PT STATED ANALGESICS HELPED RELIEVE PAIN. EDUCATED PT AND PT'S FAMILY ABOUT POC. PT HAD L HIP SURGERY TO FOR FX. POST HIP SURGERY PT VITAL SIGNS STABLE. L PICCO DRESSING C/D/I, GREEN LIGHT BLINKING. PT COMFORTABLE IN BED. HOB KEPT LESS THAN 60 DEGREES. ABDUCTOR PILLOW IN PLACE. PT DENIES HAVING FURTHER CONCERNS.
[2020-10-29] VITALS (7 sets, daily range): BP systolic 99–149; BP diastolic 55–80
[2020-10-29 04:54] LABS: HEMATOCRIT 35.4 % (42.0-52.0); HEMOGLOBIN 11.1 gm/dL (14.0-18.0); MCH 26.6 pg (26.0-34.0); MCHC 31.5 g/dL (28.0-37.0); MCV 84.5 fL (80.0-100.0); RBC 4.18 mil/uL (4.50-6.00); RDW 16.3 % (10.5-14.5); WBC 16.3 thou/uL (4.0-11.0)
[2020-10-29 05:34] LABS: ALBUMIN 2.9 g/dL (3.4-5.0); ANION GAP 6 mmol/L (7-16); BUN 30 mg/dL (7-18); CALCIUM 9.1 mg/dL (8.5-10.1); CHLORIDE 101 mmol/L (98-107); CHOLESTEROL 94 mg/dL (<200); CO2 26 mmol/L (21-32); CREATININE 1.5 mg/dL (0.7-1.3); GLUCOSE 127 mg/dL (74-106); HDL CHOLESTEROL 31 mg/dL (>40); LDL CHOLESTEROL 47 mg/dL (<100); SGOT 190 U/L (15-37); SGPT 261 U/L (30-65); SODIUM 133 mmol/L (136-145); TOTAL BILIRUBIN 0.7 mg/dL (0.2-1.0); TRIGLYCERIDE 84 mg/dL (<150); VLDL 17 mg/dL (<40)
[2020-10-29 05:40] LABS: SERUM ASSESSMENT Clear
--- NOTE | 2020-10-29 06:09 | NUR ---
PT IS HAVING SOME CONFUSION OVERNIGHT. REDIRECTED AND REORIENTED. I DO NOT KNOW IF PT HIT HEAD WHEN HE FELL. PT IS ON BEDREST DUE TO SURGERY 10/28, SURGICAL SITE IS C/D/I WITH JEANIE DRESSING. GAVE PO ORAL PAIN MEDICATION X1 AND IV ZOFRAN X1 OVERNIGHT DUE TO COMPLAINT OF HEADACHE AND NAUSEA.
--- NOTE | 2020-10-29 09:47 | NUR ---
PT IS ALERT, ORIENTED TO PERSON, PLACE, AND SITUATION. PT STATED "I CAN TELL I AM CONFUSED. I HAD THIS HAPPEN TO ME WHEN I HAD MY HEART SURGERY." DR WATSON CONSULTED. RN ASKED IF CT SCAN WAS WARRANTED PT DID NOT RECEIVE ONE WHEN HE CAME INTO THE ED, AND PT IS ON BLOOD THINNERS. DR WATSON STATED "CONFUSION IS DUE TO AGE."
--- NOTE | 2020-10-29 15:23 | NUR ---
PT IS AXOX4; PT HAS SOME CONFUSION/FORGETFULNESS. PT HAS HX OF POST ANESTHESIA CONFUSION. PT FLUIDS D/C'D. RT CONSULTED. PT ON 3L O2 VIA NC, O2 SAT 95%. WILL CONTINUE TO MONITOR ORIENTATION DAY PROGRESSES. PT RESTING COMFORTABLY. PT AT BEDSIDE. FALL PRECAUTIONS IN PLACE. NO CONCERNS AT THIS TIME.
--- NOTE | 2020-10-29 20:14 | NUR ---
REVIEWED ALL DOCUMENTATION COMPLETED BY ANGE CASAS RN. THIS RN AGREES WITH ALL CURRENT CHARTING AND DOCUMENTATION.
--- NOTE | 2020-10-30 05:18 | NUR ---
PT TRANSFERRED FROM AT 2030. VOIDING PER URINAL. TYLENOL PROVIDING PAIN RELIEF. RESTING COMFORTABLY. NO NEEDS VOICED. CALL LIGHT WITHIN REACH. FREQUENT OBSERVATION.
[2020-10-30 05:24] LABS: HEMOGLOBIN 10.7 gm/dL (14.0-18.0); MCH 27.4 pg (26.0-34.0); MCHC 32.5 g/dL (28.0-37.0); MCV 84.2 fL (80.0-100.0); RBC 3.92 mil/uL (4.50-6.00); RDW 16.3 % (10.5-14.5); WBC 10.5 thou/uL (4.0-11.0)
[2020-10-30 07:00] VITALS: BP 143/84
--- NOTE | 2020-10-30 09:25 | NUR ---
ASSESSMENT: CM REVIEWED CHART AND MET WITH PATIENT. PT IS S/P LEFT HIP HEMIARTHROPLASTY. PT REPORTS LIVING IN A DUPLEX/CONDO WITH HIS . PT REPORTS ABOUT STEPS WITH HANDRAILS TO ENTER AND HE HAS ABOUT 14 STEPS WITH HANDRAILS TO THEIR FINISHED BASEMENT BUT REPORTS HE DOES NOT HAVE TO GO DOWN THERE. PT HAS A CANE AND WALKER AT HOME TO ASSIST WITH AMBULATION. PT REPORTS HE HAS BEEN TO [facility] IN THE PAST. CM DISCUSSED ROLE AND POSSIBLE RECOMMENDATION FOR POST ACUTE CARE. HE REPORTS HE WOULD PREFER TO GO BACK TO [facility]. CM ALSO SPOKE WITH PATIENTS AND SHE CONFIRMED INFORMATION. REFERRAL WAS SENT TO [facility]. AWAITING FURTHER INPUT AT THIS TIME. CM WILL CONTINUE TO FOLLOW.
--- NOTE | 2020-10-30 10:22 | 2DMMODE ---
[facility] [place] [address] 2 D/M-MODE ECHOCARDIOGRAM Name: MICHELLE WAY GENE Room #: 447-P ADM IN M.R.#: [id number] Admission: 10/27/20 Attend Phys: Kaylene Andrea Discharge: Date of : 35 Report #: [id number] THIS REPORT FOR: cc: Ranjith Miramontes MD, David A. MD Park, Jin S. MD ~ APPROVED REPORT Study performed: 10/30/2020 09:04:16 EXAM: Comprehensive 2D, Doppler, and color-flow Echocardiogram Patient Location: Bedside Room #: [facility] Status: routine BSA: 2.11 HR: 70 bpm BP: 143/84 mmHg Rhythm: Paced. Other Information Study Quality: Good Indications Chest Pain Hx: CABG, Afib, Pacemaker, HTN, HLP. 2D Dimensions RVDd: 39.81 mm IVSd: 12.02 (7-11mm) LVOT Diam: 21.51 (18-24mm) LVDd: 53.39 mm PWd: 12.89 (7-11mm) LVDs: 37.65 (25-40mm) Aortic Root: 37.33 mm Volumes Left Atrial Volume (Systole) Single Plane 4CH: 66.37 mL Single Plane 2CH: 65.80 mL LA ESV Index: 37.00 mL/m2 Aortic Valve AoV Peak Herber.: 2.84 m/s AO Peak Gr.: 32.36 mmHg LVOT Max P.79 mmHg AO Mean Gr.: 17.87 mmHg AO V2 Mean: 2.00 m/s LVOT Max V: 1.20 m/s [facility] [address] [employer] [address] [place] [address] 2 D/M-MODE ECHOCARDIOGRAM Name: MICHELLE WAY [facility] Room #: 447-P [facility] IN [facility].#: [id number] Admission: 10/27/20 Attend Phys: Kaylene Colindres Nov Discharge: Date of : 35 Report #: [id number] AO V2 VTI: 49.12 cm ANA Vmax: 1.54 cm2 Mitral Valve E/A Ratio: 0.7 MV Decel. Time: 406.23 ms MV E Max Herber.: 0.63 m/s MV A Herber.: 0.95 m/s MV PHT: 117.81 ms IVRT: 86.51 ms Pulmonary Valve PV Peak Herber.: 1.19 m/s PV Peak Gr.: 5.62 mmHg Pulmonary Vein P Vein S: 0.43 m/s P Vein D: 0.32 m/s P Vein S/D Ratio: 1.34 Tricuspid Valve TR Peak Herber.: 2.96 m/s RAP Estimate: 10.00 mmHg TR Peak Gr.: 35.14 mmHg PA Pressure: 45.00 mmHg Left Ventricle The left ventricle is normal size. Mild concentric left ventricular hypertrophy. Left ventricular systolic function is normal. LVEF is 50-55%. Mild diastolic dysfunction is present (impaired relaxation pattern). Right Ventricle The right ventricle is normal size. The right ventricular systolic function is normal. Pacemaker lead is present in the right ventricle. Atria Mild biatrial enlargement. Aortic Valve Aortic valve is trileaflet. Moderately calcified. leaflets. Mild aortic regurgitation. There is mild to moderate valvular aortic stenosis. Calculated aortic valve area is 1.5 cm2 with maximum pressure gradient of 32 mmHg and mean pressure gradient of 18 mmHg. Mitral Valve The mitral valve is normal in structure. There is no mitral valve [facility] [place] [address] 2 D/M-MODE ECHOCARDIOGRAM Name: MICHELLE WAY [facility] Room #: 447-P [facility] IN ..#: [id number] Admission: 10/27/20 Attend Phys: Kaylene Park Discharge: Date of : 35 Report #: [id number] regurgitation noted. No evidence of mitral valve stenosis. Tricuspid Valve The tricuspid valve is normal in structure. Trace to mild tricuspid regurgitation. Estimated PAP is 40mmHg. Pulmonic Valve The pulmonary valve is normal in structure. Mild pulmonic regurgitation. Great Vessels The aortic root is normal in size. Ascending aorta is not well visualized. IVC is normal in size and collapses <50% with inspiration. Pericardium There is no pericardial effusion. <Conclusion> The left ventricle is normal size. Mild concentric left ventricular hypertrophy. Left ventricular systolic function is normal. Mild diastolic dysfunction is present (impaired relaxation pattern). The right ventricle is normal size. There is mild to moderate valvular aortic stenosis. Mild aortic regurgitation. There is no mitral valve regurgitation noted. Trace to mild tricuspid regurgitation. Estimated PAP is 40mmHg. <ELECTRONICALLY SIGNED> By: Say Braga MD 10/30/20 1022 1022 102 Say Braga MD /INF
[2020-10-30 16:25] VITALS: BP 120/68
[2020-10-30 22:00] VITALS: BP 143/79
--- NOTE | 2020-10-31 02:47 | NUR ---
PT HAS BEEN IMPULSIVE SINCE SHIFT CHANGE.PT ALERT WITH CONFUSION/FORGETFUL.PT HAS TRIED TO GET OUT OF BED MULTIPLE TIMES WAS REDIRECTED.DRSG TO HIS L HIP C/D/I.DRSG TO HIS L ARM CHANGED.PT SLEEPING OFF AND ON SO FAR.CALL LIGHT WITHIN REACH.
[2020-10-31 06:52] LABS: ALBUMIN 2.6 g/dL (3.4-5.0); CALCIUM 8.8 mg/dL (8.5-10.1); CREATININE 1.1 mg/dL (0.7-1.3); POTASSIUM 3.6 mmol/L (3.5-5.1); TOTAL BILIRUBIN 0.8 mg/dL (0.2-1.0); TOTAL PROTEIN 5.9 g/dL (6.4-8.2)
[2020-10-31 08:32] VITALS: BP 183/98
[2020-10-31] MEDS ORDERED: FLOMAX0.4 MG PO (09:32)
[2020-10-31] MEDS ORDERED: HYDROCODON-ACE1 EAC7 PO (09:32)
[2020-10-31] MEDS ORDERED: ASPIR 8181 MG PO (09:32)
[2020-10-31 09:45] VITALS: BP 124/71
--- NOTE | 2020-10-31 14:13 | NUR ---
ON-GOING ASSESSMENT: CM REVIEWED CHART AND SPOKE WITH PATIENT AND ATTENDING. PT IS STABLE TO DISCHARGE TO SNF. CM NOTIFIED LIAJOSUE TORRES AT [facility] OF DISCHARGE AND SHE REPORTS THEY HAVE INSURANCE AUTH AND CAN ACCEPT. CM NOTIFIED SPRING INSPECTOR TO MAKE A CHART COPY. CM FAXED DISCHARGE ORDERS TO FACILITY AND CONFIRMED THEY RECEIVED IT. BEDSIDE RN HAS A NUMBER FOR REPORT. PATIENTS IS PRESENT IN THE ROOM AND AGREAABLE WITH DISCHARGE TODAY. TRANSPORTATION HAS BEEN ARRANGED BY FACILITY FOR 1600. BEDSIDE RN NOTIFIED WELL PATIENT AND HIS . CASE CLOSED.
--- NOTE | 2020-10-31 16:43 | NUR ---
PT A&O TO SELF, VSS, PAIN AT 3 USING FACES SCALE. PAIN MEDICATION GIVEN. JEANIE DRESSING INTACT, CLEAN AND DRY. IV REMOVED FROM PATIENT. PATIENT DISCHARGED TO REHAB AND SPOUSE WAS AT BEDSIDE. REPORT CALLED TO FACILITY, ALSO GAVE IN REPORT THAT PATIENTS PRESCRIPTIONS INCLUDING NORCO WAS NOT SENT WITH PACKET. WAS GIVEN OK TO FAX PRESCRIPTIONS AT NUMBER [phone]. PATIENT ON ROOM AIR. NO SIGNS OF DISTRESS. ALL BELONGINGS WITH PATIENT
--- NOTE | 2020-11-02 14:01 | O ---
[facility] [place] [address] OPERATIVE REPORT Name: MICHELLE WAY [facility] Room #: 447-P [facility] IN M.R.#: [id number] Admission: 10/27/20 Attend Phys: Kaylene Andrea Discharge: 10/31/20 Date of : 35 Report #: [id number] THIS REPORT FOR: cc: Ranjiht Miramontes MD, David A. MD Abraham,Ted Larry MD ~ DATE OF SERVICE: 10/28/2020 PREOPERATIVE DIAGNOSIS: Left displaced femoral neck fracture. POSTOPERATIVE DIAGNOSIS: Left displaced femoral neck fracture. PROCEDURE: Left hip hemiarthroplasty. SURGEON: Ted Rockwell MD INSPECTOR PRODUCTION PLASTIC PARTS: Kiarra Lagos PA-C INDICATIONS FOR INSPECTOR PRODUCTION PLASTIC PARTS: Throughout the case, extensive retraction and manipulation of the hip including dislocation and reduction was required. This was afforded to me by my construction management assistant. ANESTHESIA: LMA. IMPLANTS: [employer]urt [employer]hew size 13 high offset Synergy cemented stem, a size 55+0 cobalt chrome unipolar head. ESTIMATED BLOOD LOSS: 100 mL. COMPLICATIONS: None. SPECIMENS: None. CONDITION UPON LEAVING THE OPERATING ROOM: Stable. INDICATIONS FOR PROCEDURE: The patient is an 85-year-old gentleman who fell and sustained a left displaced femoral neck fracture. After discussion with him, he elected for left hip hemiarthroplasty. DESCRIPTION OF PROCEDURE: Risks, benefits, alternatives, and complications were discussed in detail with the patient including but not limited to risk of anesthesia, risk of damage to nerves, arteries, blood vessels, risk for infection, bleeding, risk for continued hip pain, leg length discrepancy, instability and need for reoperation. Informed consent was obtained from the patient. Left hip was appropriately marked in the preoperative holding area. [address] [address] OPERATIVE REPORT Name: MICHELLE WAY [facility] Room #: 447-P [facility] IN M.R.#: [id number] Admission: 10/27/20 Attend Phys: Kaylene Andrea Discharge: 10/31/20 Date of : 35 Report #: [id number] Ancef was given for preoperative antibiotics. He was brought to the operating room and placed in the supine position on the operating room table. LMA anesthesia was induced without complication. He was then placed in the right lateral decubitus position with the left hip uppermost. Left hip and lower extremity were prepped and draped in normal sterile fashion. Timeout was performed properly identifying the patient and procedure as well as the instrumentation and implants. All in the operating room were in agreement. Standard posterior approach to the left hip was made with 10 blade through the skin. Dissection was taken down to the fascia with Bovie cautery. Simon elevator was used to clean the fascia. Fresh 10 blade was used to make a fascial incision. This was taken proximally and distally with curved Freeman scissor. Charnley retractor was placed. Trochanteric bursa was taken down with Bovie cautery. Piriformis tendon was identified, tagged and taken down with Bovie. Short external rotators were also taken down with Bovie cautery. Capsulotomy was made and capsule ends were tagged for later repair. The hip was dislocated. There was obvious displaced femoral neck fracture. Femoral neck cleanup cut was made with the oscillating saw and the femoral head was removed. The femoral head was sized and sized to be a 56. A size 55 trial was placed in the acetabulum and found to have a good fit. Attention was turned to the femur. This was reamed and broached up to a size 13, at which point, the size 13 broach was stable. This was then trialed with a high offset neck and a 55+0 head. Hip was reduced, taken through range of motion, found to be stable, found to have equal leg lengths. Hip was dislocated. A final size 13 high offset Synergy cemented stem was cemented in place using standard cementation techniques. After the cement cured, this was trialed with a 55+0 head. Hip was reduced, taken through range of motion, found to be stable, found to have equal leg lengths. Hip was dislocated one last time and a final size 55+0 cobalt chrome unipolar head was placed. Hip was reduced, taken through range of motion, found to be stable, found to have equal leg lengths. Periarticular injection consisting of morphine, ropivacaine, epinephrine, Toradol was placed around the hip joint capsule. A gram of vancomycin was placed deep in the joint capsule and piriformis were repaired with 0 FiberWire. Fascia was closed with 0 Vicryl, skin was closed with 2-0 Vicryl, skin staple and a JEANIE dressing was applied. The patient tolerated this procedure well and went to recovery room under care of anesthesia postoperatively. <ELECTRONICALLY SIGNED> By: Ted Rockwell MD 11/02/20 1401 1306 1320 Ted Rockwell MD /nt
== END 2020-10-31 17:18 | DRG 521 ==
LOC: ER 16:04 → 2N 18:02 → EROBS 18:02 → 2N 10-28 04:55 → 4S 10-29 20:00
PROVIDERS: Nurse Practitioner; Orthopaedic Surgery; ADMIT Hospitalist; ATTEND Hospitalist
PROC: 0SRS019 Replacement of Left Hip Joint, Femoral Surface with Metal Synthetic Substitute, Cemented, Open Approach (ICD-10-PCS; principal; 2020-10-28)
DX: S72.092A Other fracture of head and neck of left femur, initial encounter for closed fracture (principal); R65.11 Systemic inflammatory response syndrome (SIRS) of non-infectious origin with acute organ dysfunction; E46 Unspecified protein-calorie malnutrition; N39.0 Urinary tract infection, site not specified; N17.9 Acute kidney failure, unspecified; R07.9 Chest pain, unspecified; I10 Essential (primary) hypertension; I25.10 Atherosclerotic heart disease of native coronary artery without angina pectoris; E78.5 Hyperlipidemia, unspecified; K59.00 Constipation, unspecified; I48.0 Paroxysmal atrial fibrillation; N40.0 Benign prostatic hyperplasia without lower urinary tract symptoms; K21.9 Gastro-esophageal reflux disease without esophagitis; F32.9 Major depressive disorder, single episode, unspecified; R79.89 Other specified abnormal findings of blood chemistry; W18.39XA Other fall on same level, initial encounter; S51.802A Unspecified open wound of left forearm, initial encounter; Z20.822 Contact with and (suspected) exposure to COVID-19; Y93.89 Activity, other specified; Y92.89 Other specified places as the place of occurrence of the external cause; Y99.8 Other external cause status; Z95.0 Presence of cardiac pacemaker; Z90.49 Acquired absence of other specified parts of digestive tract; Z98.49 Cataract extraction status, unspecified eye; Z79.899 Other long term (current) drug therapy; Z87.891 Personal history of nicotine dependence; Z68.23 Body mass index [BMI] 23.0-23.9, adult
CPT/HCPCS: 10194; 10195; 50010; 50101; 50382; 50414; 51057; 51130; 51225; 51226; 51412; 53000; 53078; 56460; 56524; 56528; 56530; 57095; 57103; 57165; 62110; 62900; 70005

== ENCOUNTER → 2021-01-19 | Outpatient (CLI) | payer OTHER ==
[~2021-01-19] MED LIST changes: +ASPIR 8181 MG PO; +DOXYCYCLINE HY100 M3 PO; +ESCITALOPRAM OX20 MG PO; +LISINOPRIL5 MG PO
== END ==
LOC: SJCVCIMAG 12-29 09:36
PROVIDERS: ATTEND Internal Medicine Cardiovascular Disease
DX: I10 Essential (primary) hypertension (principal); R06.00 Dyspnea, unspecified; I25.119 Atherosclerotic heart disease of native coronary artery with unspecified angina pectoris; I48.0 Paroxysmal atrial fibrillation; I44.2 Atrioventricular block, complete; I35.0 Nonrheumatic aortic (valve) stenosis; I25.5 Ischemic cardiomyopathy; M19.90 Unspecified osteoarthritis, unspecified site; E78.5 Hyperlipidemia, unspecified; Z95.0 Presence of cardiac pacemaker; Z98.890 Other specified postprocedural states; Z95.1 Presence of aortocoronary bypass graft; Z79.82 Long term (current) use of aspirin; Z79.899 Other long term (current) drug therapy; Z87.891 Personal history of nicotine dependence; Z82.49 Family history of ischemic heart disease and other diseases of the circulatory system

== ENCOUNTER → 2021-07-23 | Outpatient (CLI) | payer OTHER | LOC: SJCVCIMAG 12:58 | PROVIDERS: ATTEND Internal Medicine Cardiovascular Disease | DX: I08.3 Combined rheumatic disorders of mitral, aortic and tricuspid valves (principal); R94.31 Abnormal electrocardiogram [ECG] [EKG]; I25.5 Ischemic cardiomyopathy; I48.0 Paroxysmal atrial fibrillation; I11.0 Hypertensive heart disease with heart failure; I50.9 Heart failure, unspecified; M19.90 Unspecified osteoarthritis, unspecified site; I25.10 Atherosclerotic heart disease of native coronary artery without angina pectoris; E78.5 Hyperlipidemia, unspecified; G62.9 Polyneuropathy, unspecified; Z95.0 Presence of cardiac pacemaker; Z79.899 Other long term (current) drug therapy; Z87.891 Personal history of nicotine dependence; Z72.89 Other problems related to lifestyle ==